=== PATIENT | female | born 1940 | race Caucasian/White ===

== ENCOUNTER 2018-06-19 07:32 | Emergency (ER) | payer MEDICARE ==
[~2018-06-19] VITALS: Ht 157.5 cm; Wt 90.7 kg
[~2018-06-19 07:32] MED LIST: ALPR0.254 PO; AMOX500C2 PO; ASPI-84 PO; BP MED; BSP10T; CEPH-506 PO; CETI10CA PO; HCT25T PO; LABE300T PO; LEVO25TA5 PO; POTA-51 PO; POTA10CA43 PO; VLS80C PO; XANAX; flexeril PO
[2018-06-19] MEDS ORDERED: KETOROLAC 30 MG/ML VIAL IM ONE (08:00)
[2018-06-19] MEDS ORDERED: ORPHENADRINE 60 MG/2 ML (NORFLEX) AMP IM ONE (08:00)
[2018-06-19] MEDS ORDERED: HYDROcodone/APAP 5 MG/325 MG (LORTAB) TAB PO ONE (09:00)
--- NOTE | 2018-06-19 09:15 | ED Back Pain ---
General Chief Complaint: Back Problems Stated Complaint: POSSIBLE SHINGLES Nursing Triage Note: pt presents to ed with complaints of upper r upper back pain starting at 1900 yesterday. pt reports reports it is worse with movement and touch. pt reports she has been packing boxes for a move recently. Nursing Sepsis Screen: No Definite Risk Source of Information: Patient Exam Limitations: No Limitations History of Present Illness Date Seen by Provider: Jun 19, 2018 Time Seen by Provider: 07:40 Initial Comments This delightful 78-year-old woman presents to the emergency room with complaints of pain in the right upper back since yesterday. It is exacerbated with certain movements and positions. She did take some medications last night including ibuprofen. She has also tried a heating pad. Patient reports she is in the process of moving and her son's home and has been sorting through things and packing boxes. She denies any known injury. This is a new problem for her. Pain did disrupt her sleep. Allergies and Home Medications Allergies Coded Allergies: Sulfa (Sulfonamide Antibiotics) (Verified Allergy, Unknown, 09/01/06) Home Medications Alprazolam 0.25 Mg Tablet, 0.25 MG PO BID, (Reported) Buspirone Hcl 10 Mg Tablet, 2 BID, (Reported) Cephalexin 250 Mg Capsule, 250 MG PO TID, (Reported) Cetirizine HCl 10 Mg Capsule, 10 MG PO DAILY, (Reported) Cyclobenzaprine HCl 5 Mg Tablet, 5 MG PO TID PRN for SPASMS Prescribed by: FIORELLA WATTERS on 06/19/18919 Hydrochlorothiazide 25 Mg Tab, 25 MG PO BID, (Reported) Hydrocodone/Acetaminophen 1 Each Tablet, 1 EACH PO Q6H PRN for PAIN-MODERATE TO SEVERE Prescribed by: FIORELLA WATTERS on 06/19/18 09 Labetalol Hcl 300 Mg Tablet, 2 EACH PO BID, (Reported) Levothyroxine Sodium 25 Mcg Tablet, 25 MCG PO DAILY, (Reported) Potassium Chloride 10 Meq Capsule.er, 10 MEQ PO DAILY Prescribed by: KETAN PÉREZ on 10/21/15 1624 Potassium Chloride 20 Meq Tablet.er, 20 MEQ PO BID Prescribed by: KETAN PÉREZ on 02/06/16 1439 Prednisone 10 Mg Tab, 1 TAB PO DAILY Prescribed by: FIORELLA WATTERS on 06/19/18 0920 Valsartan 80 Mg Tab, 160 MG PO BID, (Reported) [flexeril] , 5 MG PO BID PRN for PAIN Prescribed by: KETAN PÉREZ on 02/06/16 1441 Patient Home Medication List Home Medication List Reviewed: Yes Constitutional: no symptoms reported EENTM: no symptoms reported Respiratory: no symptoms reported Cardiovascular: no symptoms reported Gastrointestinal: no symptoms reported Genitourinary: no symptoms reported : No Musculoskeletal: see HPI Skin: no symptoms reported Psychiatric/Neurological: No Symptoms Reported Past Avgvkow-Kcvepp-Cfmuhu Hx Past Med/Social Hx: Reviewed and Corrections made Patient Social History Alcohol Use: Denies Use Recreational Drug Use: No Smoking Status: Former Smoker Type Used: Cigarettes Former Smoker, Quit: Jun 05, 1969 Recent Foreign Travel: No Contact w/Someone Who Travel: No Recent Infectious Disease Expo: No Physical Abuse: No Sexual Abuse: No Mistreated: No Fear: No Immunizations Up To Date Date of Pneumonia Vaccine: Sep 24, 2015 Date of Influenza Vaccine: Sep 24, 2015 Past Medical History Surgeries: Yes (HERNIA REPAIR) Appendectomy, Gallbladder, Hysterectomy, Tonsillectomy Respiratory: No Cardiac: Yes Hypertension Neurological: No : No Gastrointestinal: Yes (HERNIA) Musculoskeletal: Yes Osteoporosis Endocrine: Yes Hypothyroidsim Cancer: No Psychosocial: Yes Anxiety Nursing Suicide Risk Score: 0 Physical Exam Vital Signs Vital Signs - First Documented 06/19/18 07:45 Temp 96.1 Pulse 94 Resp 18 B/P (MAP) 179/93 (121) Pulse Ox 95 Capillary Refill : Less Than 3 Seconds Height, Weight, BMI Height: 5'2.00" Weight: 200lbs. oz. [id number]; 37.78 BMI Method:Stated General Appearance: WD/WN, Mild Distress HEENT: PERRL/EOMI, Normal ENT Inspection Neck: Normal Inspection Cardiovascular: Regular Rate, Rhythm, No Edema, No Murmur Respiratory: Lungs Clear, Normal Breath Sounds, No Accessory Muscle Use, No Respiratory Distress Gastrointestinal: Non Tender, Soft Back: Normal Inspection, No Vertebral Tenderness, Other (there is tenderness to palpation over a tense muscle medial to the right scapula that seems to be the focus of her pain) Extremity: Normal Inspection Progress/Results/Core Measures Results/Orders My Orders Orders - FIORELLA GREGORY MD Ketorolac Injection (Toradol Injection) (06/19/18 08:00) Orphenadrine Injection (Norflex Injectio (06/19/18 08:00) Hydrocodone/Apap 5/325 Tablet (Lortab 5 (06/19/18 09:00) Medications Given in ED Vital Signs/I&O 06/19/18 07:45 Temp 96.1 Pulse 94 Resp 18 B/P (MAP) 179/93 (121) Pulse Ox 95 Blood Pressure Mean: 121 Progress Progress Note : Progress Note Muscle spasm in the right upper back medial to the right scapula and to be the focus of her pain. Patient was treated with Toradol and Norflex with some improvement. She was further treated with hydrocodone before dismissal. See discharge instructions. Departure Impression Primary Impression: Upper back pain Additional Impression: Back muscle spasm Disposition: 01 HOME, SELF-CARE Condition: Improved Departure-Patient Inst. Decision time for Depature: 08:45 Referrals: TAYE GARZA MD (PCP/Family) Primary Care Physician Patient Instructions: Muscle Spasms (DC), Upper Back Pain (DC) Add. Discharge Instructions: You may take ibuprofen up to 400 mg every 6 hours as needed for primary control of your pain. Add hydrocodone as prescribed for pain not controlled by ibuprofen. Gentle heat may also help with your pain and spasms. Use cyclobenzaprine for spasms. Please be aware that hydrocodone and cyclobenzaprine may cause drowsiness. Prednisone may also be used as prescribed to help calm down inflammation and spasms. Follow-up with your primary care provider early next week if not improving as expected. All discharge instructions reviewed with patient and/or family. Voiced understanding. Scripts Prednisone (Prednisone) 10 Mg Tab 1 TAB PO DAILY, #4 TAB Prov: FIORELLA GREGORY MD 06/19/18 Cyclobenzaprine HCl (Cyclobenzaprine HCl) 5 Mg Tablet 5 MG PO TID PRN for SPASMS, #10 TAB Prov: FIORELLA GREGORY MD 06/19/18 Hydrocodone/Acetaminophen (Hydrocodone-Acetamin 5-325 mg) 1 Each Tablet 1 EACH PO Q6H PRN for PAIN-MODERATE TO SEVERE, #10 TAB Prov: FIORELLA GREGORY MD 06/19/18 FIORELLA GREGORY MD Jun 19, 2018 09:15
[2018-06-19] MEDS ORDERED: HYDR-3812 PO (09:20)
[2018-06-19] MEDS ORDERED: PRD10T PO (09:20)
[2018-06-19] MEDS ORDERED: CYCL5TAB PO (09:20)
[2018-06-19 09:29] VITALS: BP 154/82
== END 2018-06-19 09:29 | disposition home or self-care (01) ==
LOC: EDUNIT# 07:32 → ER 07:34
DX: M54.6 Pain in thoracic spine (principal); M62.830 Muscle spasm of back; I10 Essential (primary) hypertension; M81.0 Age-related osteoporosis without current pathological fracture; E03.9 Hypothyroidism, unspecified; F41.9 Anxiety disorder, unspecified; Z88.2 Allergy status to sulfonamides; Z87.19 Personal history of other diseases of the digestive system; Z79.52 Long term (current) use of systemic steroids; Z87.891 Personal history of nicotine dependence; Z90.710 Acquired absence of both cervix and uterus; Z90.89 Acquired absence of other organs
CPT/HCPCS: 96372; 99281

== ENCOUNTER 2022-12-07 12:26 | Inpatient (IN) | payer MEDICARE ==
[~2022-12-07 12:26] MED LIST changes: +ACHD5005 PO; +ALPR.25T PO; -ALPR0.254 PO; +CYCL5TAB PO; -POTA10CA43 PO; +POTA10CA44 PO; +PRD10T PO
--- NOTE | 2022-12-07 12:47 | ED General ---
General Chief Complaint: Altered Mental Status Stated Complaint: CONFUSION Nursing Triage Note: PT TO ED PER EMS, EMS STATES SON CALLED DUE TO PATIENT HAVING INCREASED CONFUSION AND INCREASED FALLS RECENTLY Source of Information: Patient, EMS Exam Limitations: No Limitations History of Present Illness Date Seen by Provider: Dec 07, 2022 Time Seen by Provider: 12:35 Initial Comments 82-year-old female presents to the emergency department today via EMS for reported increased confusion and falls. She does have a history of falls however has fallen 4 times over the last week. No apparent injuries from these falls. She does live at home with her son per her report. She does remember each event and denies any injury. She denies any chest pain or shortness of breath prior to each event. No recent illnesses to include fevers chills chest pain, shortness of breath, abdominal pain or change in bowel bladder habits she states she is sometimes intermittently confused but does not feel confused currently. She does state that she has been dizzy which has been causing her falls. This seems to be a longstanding issue for her. Allergies and Home Medications Allergies Coded Allergies: Sulfa (Sulfonamide Antibiotics) (Verified Allergy, Unknown, 09/01/06) Patient Home Medication List Home Medication List Reviewed: Yes ALPRAZolam (Xanax Tablet) 0.25 Mg Tablet, 0.25 MG PO BID, (Reported) Entered as Reported by: EMMA MULLER on 10/21/151409 Buspirone Hcl (Buspar) 10 Mg Tablet, 2 BID, (Reported) Entered as Reported by: VIVIANE OCAMPO on 12/29/10 075 Cephalexin (Keflex) 250 Mg Capsule, 250 MG PO TID, (Reported) Entered as Reported by: EMMA MULLER on 10/21/15 141 Cetirizine HCl (Zyrtec) 10 Mg Capsule, 10 MG PO DAILY, (Reported) Entered as Reported by: EMMA MULLER on 10/21/15 141 Cyclobenzaprine HCl (Cyclobenzaprine HCl) 5 Mg Tablet, 5 MG PO TID PRN for SPASMS Prescribed by: FIORELLA WATTERS on 06/19/18 0920 Hydrochlorothiazide (Hctz) 25 Mg Tab, 25 MG PO BID, (Reported) Entered as Reported by: VIVIANE OCAMPO on 12/29/10 0754 Hydrocodone Bit/Acetaminophen (Lortab 5 Mg Tablet) 1 Each Tablet, 1 EACH PO Q6H PRN for PAIN-MODERATE TO SEVERE Prescribed by: FIORELLA WATTERS on 06/19/18 0920 Labetalol Hcl (Labetalol Hcl) 300 Mg Tablet, 2 EACH PO BID, (Reported) Entered as Reported by: VIVIANE OCAMPO on 12/29/10 0754 Levothyroxine Sodium (Levothyroxine Sodium) 25 Mcg Tablet, 25 MCG PO DAILY, (Reported) Entered as Reported by: EMMA MULLER on 10/21/15 1410 Potassium Chloride (Potassium Chloride) 10 Meq Capsule.er, 10 MEQ PO DAILY Prescribed by: KETAN PÉREZ on 10/21/15 1624 Potassium Chloride (Potassium Chloride) 20 Meq Tablet.er, 20 MEQ PO BID Prescribed by: KETAN PÉREZ on 02/06/16 1439 Prednisone (Prednisone) 10 Mg Tab, 1 TAB PO DAILY Prescribed by: FIORELLA WATTERS on 06/19/18 0920 Valsartan (Diovan) 80 Mg Tab, 160 MG PO BID, (Reported) Entered as Reported by: VIVIANE OCAMPO on 12/29/10 0754 [flexeril] , 5 MG PO BID PRN for PAIN Prescribed by: KETAN PÉREZ on 02/06/16 1441 Review of Systems Review of Systems Constitutional: no symptoms reported EENTM: no symptoms reported Respiratory: no symptoms reported Cardiovascular: no symptoms reported Gastrointestinal: no symptoms reported Genitourinary: no symptoms reported Musculoskeletal: no symptoms reported Skin: no symptoms reported Psychiatric/Neurological: Other (Intermittent confusion) Hematologic/Lymphatic: No Symptoms Reported Immunological/Allergic: no symptoms reported Past Npsvxlm-Ijfesw-Owiudm Hx Patient Social History Tobacco Use?: No Substance use?: No Alcohol Use?: No Past Medical History Surgeries: Yes (HERNIA REPAIR) Appendectomy, Gallbladder, Hysterectomy, Tonsillectomy Respiratory: No Cardiac: Yes Hypertension Neurological: No Gastrointestinal: Yes (HERNIA) Musculoskeletal: Yes Osteoporosis Endocrine: Yes Hypothyroidsim Cancer: No Psychosocial: Yes Anxiety Family Medical History Reviewed Nursing Family Hx No Pertinent Family Hx Physical Exam Vital Signs Vital Signs - First Documented 12/07/22 12:31 Temp 37.0 Pulse 88 Resp 16 B/P (MAP) 215/95 (135) Pulse Ox 95 O2 Delivery Room Air Capillary Refill : Less Than 3 Seconds Height, Weight, BMI Height: 5'2.00" Weight: 200lbs. oz. 90.027201ff; 37.78 BMI Method:Stated General Appearance: No Apparent Distress, WD/WN Eyes: Bilateral Eye Normal Inspection, Bilateral Eye PERRL, Bilateral Eye EOMI HEENT: TMs Normal, Normal ENT Inspection, Pharynx Normal Neck: Normal Inspection, Non Tender, Supple Respiratory: Chest Non Tender, Lungs Clear, Normal Breath Sounds, No Accessory Muscle Use, No Respiratory Distress Cardiovascular: Regular Rate, Rhythm, No Edema, No Gallop, No Murmur Gastrointestinal: Normal Bowel Sounds, No Organomegaly, No Pulsatile Mass, Non Tender, Soft Back: Normal Inspection, No CVA Tenderness, No Vertebral Tenderness Extremity: Normal Capillary Refill, Normal Inspection, Normal Range of Motion, Non Tender, No Calf Tenderness, No Pedal Edema Neurologic/Psychiatric: Alert, Oriented x3, No Motor/Sensory Deficits, Normal Mood/Affect, credit union teller II-XII Norm as Tested, Other (The patient will occasionally f orget where we are in our conversation however continues appropriately when prompted. She does seem to answer questions appropriately, is alert and oriented to person place and time.) Skin: Normal Color, Warm/Dry Lymphatic: No Adenopathy Progress/Results/Core Measures Suspected Sepsis SIRS Temperature: Pulse: 88 Respiratory Rate: 16 Laboratory Tests 12/07/22 12:35: White Blood Count 6.2 Blood Pressure 215 /95 Mean: 135 Laboratory Tests 12/07/22 12:35: Creatinine 0.84, Platelet Count 105L, Total Bilirubin 1.0 Results/Orders Lab Results Laboratory Tests Test 12/07/22 12:35 12/07/22 13:40 Range/Units White Blood Count 6.2 4.3-11.0 10^3/uL Red Blood Count 4.15 3.80-5.11 10^6/uL Hemoglobin 13.7 11.5-16.0 g/dL Hematocrit 39 35-52 % Mean Corpuscular Volume 94 80-99 fL Mean Corpuscular Hemoglobin 33 25-34 pg Mean Corpuscular Hemoglobin Concent 35 32-36 g/dL Red Cell Distribution Width 12.8 10.0-14.5 % Platelet Count 105 L 130-400 10^3/uL Mean Platelet Volume 11.6 9.0-12.2 fL Immature Granulocyte % (Auto) 0 % Neutrophils (%) (Auto) 66 42-75 % Lymphocytes (%) (Auto) 24 12-44 % Monocytes (%) (Auto) 8 0-12 % Eosinophils (%) (Auto) 2 0-10 % Basophils (%) (Auto) 0 0-10 % Neutrophils # (Auto) 4.1 1.8-7.8 10^3/uL Lymphocytes # (Auto) 1.5 1.0-4.0 10^3/uL Monocytes # (Auto) 0.5 0.0-1.0 10^3/uL Eosinophils # (Auto) 0.1 0.0-0.3 10^3/uL Basophils # (Auto) 0.0 0.0-0.1 10^3/uL Immature Granulocyte # (Auto) 0.0 0.0-0.1 10^3/uL Percent Immature Platelet Fraction 7.7 H 0.0-7.6 % Sodium Level 140 135-145 MMOL/L Potassium Level 3.1 L 3.6-5.0 MMOL/L Chloride Level 102 98-107 MMOL/L Carbon Dioxide Level 25 21-32 MMOL/L Anion Gap 13 5-14 MMOL/L Blood Urea Nitrogen 19 H 7-18 MG/DL Creatinine 0.84 0.60-1.30 MG/DL Estimat Glomerular Filtration Rate 68 BUN/Creatinine Ratio 23 Glucose Level 119 H 70-105 MG/DL Calcium Level 9.9 8.5-10.1 MG/DL Corrected Calcium 9.8 8.5-10.1 MG/DL Total Bilirubin 1.0 0.1-1.0 MG/DL Aspartate Amino Transf (AST/SGOT) 45 H 5-34 U/L Alanine Aminotransferase (ALT/SGPT) 25 0-55 U/L Alkaline Phosphatase 106 40-136 U/L Troponin I < 0.028 <0.028 NG/ML Total Protein 7.0 6.4-8.2 GM/DL Albumin 4.1 3.2-4.5 GM/DL Urine Color YELLOW Urine Clarity CLEAR Urine pH 7.5 5-9 Urine Specific [place] 1.020 1.016-1.022 Urine Protein 2+ H NEGATIVE Urine Glucose (UA) NEGATIVE NEGATIVE Urine Ketones NEGATIVE NEGATIVE Urine Nitrite POSITIVE H NEGATIVE Urine Bilirubin NEGATIVE NEGATIVE Urine Urobilinogen 0.2 < = 1.0 MG/DL Urine Leukocyte Esterase TRACE H NEGATIVE Urine RBC (Auto) TRACE-I H NEGATIVE Urine RBC RARE /HPF Urine WBC 0-2 /HPF Urine Squamous Epithelial Cells NONE /HPF Urine Crystals NONE /LPF Urine Bacteria LARGE H /HPF Urine Casts NONE /LPF Urine Mucus NEGATIVE /LPF Urine Culture Indicated YES Urine Opiates Screen POSITIVE H NEGATIVE Urine Oxycodone Screen NEGATIVE NEGATIVE Urine Methadone Screen NEGATIVE NEGATIVE Urine Propoxyphene Screen NEGATIVE NEGATIVE Urine Barbiturates Screen NEGATIVE NEGATIVE Ur Tricyclic Antidepressants Screen NEGATIVE NEGATIVE Urine Phencyclidine Screen NEGATIVE NEGATIVE Urine Amphetamines Screen NEGATIVE NEGATIVE Urine Methamphetamines Screen NEGATIVE NEGATIVE Urine Benzodiazepines Screen NEGATIVE NEGATIVE Urine Cocaine Screen NEGATIVE NEGATIVE Urine Cannabinoids Screen NEGATIVE NEGATIVE My Orders Orders - VICTORINO GOODWIN DO Cbc With Automated Diff (12/07/22 12:42) Comprehensive Metabolic Panel (12/07/22 12:42) Ua Culture If Indicated (12/07/22 12:42) Drug Screen Stat (Urine) (12/07/22 12:42) Chest 1 View, Ap/Pa Only (12/07/22 12:42) Ct Head Wo (12/07/22 12:42) Troponin I Joshua (12/07/22 12:47) Ekg Tracing (12/07/22 12:47) Urine Culture (12/07/22 13:40) Ceftriaxone 1 Gm Pre-Mix (Rocephin 1 Gm (12/07/22 14:15) Ed Admission (Communication) (12/07/22 14:41) Code/Resuscitation (12/07/22 14:48) Vital Signs/I&O 12/07/22 12:31 Temp 37.0 Pulse 88 Resp 16 B/P (MAP) 215/95 (135) Pulse Ox 95 O2 Delivery Room Air Capillary Refill : Less Than 3 Seconds Blood Pressure Mean: 135 ECG Comment Sinus rhythm with a rate of 82 bpm. Normal intervals. Left axis deviation. No ST or T wave abnormalities. No ectopy. Departure Communication (Admissions) Patient is intermittently pleasantly confused. She does have a significant urinary tract infection and some lung infiltrates, infectious versus atelectasis. Significant leukocytosis. She is afebrile and nontoxic with normal vital signs otherwise. I think her confusion is likely a manifestation of her urinary tract infection and possible lung infections however she does not have a lot of symptoms of lung infection. With that I gave her some Rocephin. He seems to cover the urinary tract infection but should cover any lung infections as well and is this would be considered a community-acquired type infection. Electrolytes are unremarkable, renal function is normal. She is not dehydrated on exam making urine well. I spoke with her son at length. He has been talking about putting her in a nursing facility at home as he feels that she is unsafe at home, getting out of bed frequently without asking for assistance and falling down with increased frequency. He is concerned that she will hold her self only 1 of these times. Given her current confusion and incre asing falls we will go ahead and admit her to the hospital for IV antibiotics. I spoke with Dr. De Souza who accepts the patient in admission. Impression Primary Impression: Confusion Additional Impressions: Lung infiltrate UTI (urinary tract infection) Qualified Codes: N30.01 - Acute cystitis with hematuria Disposition: HOME, SELF-CARE Condition: Stable Departure-Patient Inst. Referrals: TAYE GARZA MD (PCP/Family) Primary Care Physician VICTORINO GOODWIN DO Dec 07, 2022 12:47
[2022-12-07 13:01] LABS: HEMATOCRIT 39 % (35-52); NEUTROPHILS # (AUTO) 4.1 10^3/uL (1.8-7.8)
[2022-12-07 13:03] LABS: BASOPHILS % (AUTO) 0 % (0-10); EOSINOPHILS # (AUTO) 0.1 10^3/uL (0.0-0.3); EOSINOPHILS % (AUTO) 2 % (0-10); HEMOGLOBIN 13.7 g/dL (11.5-16.0); LYMPHOCYTES # (AUTO) 1.5 10^3/uL (1.0-4.0); LYMPHOCYTES % (AUTO) 24 % (12-44); MEAN CORPUSCULAR HEMOGLOBIN 33 pg (25-34); MEAN CORPUSCULAR HGB CONC 35 g/dL (32-36); MEAN CORPUSCULAR VOLUME 94 fL (80-99); MEAN PLATELET VOLUME 11.6 fL (9.0-12.2); MONOCYTES # (AUTO) 0.5 10^3/uL (0.0-1.0); MONOCYTES % (AUTO) 8 % (0-12); NEUTROPHILS % (AUTO) 66 % (42-75); WHITE BLOOD COUNT 6.2 10^3/uL (4.3-11.0)
[2022-12-07 13:05] LABS: PLATELET COUNT 105 10^3/uL (130-400)
[2022-12-07 13:13] LABS: ALBUMIN 4.1 GM/DL (3.2-4.5); POTASSIUM 3.1 MMOL/L (3.6-5.0)
[2022-12-07 13:14] LABS: CALCIUM 9.9 MG/DL (8.5-10.1)
--- NOTE | 2022-12-07 13:16 | Diagnostic Imaging Report ---
EXAMINATION: CT head without contrast. TECHNIQUE: Multiple contiguous axial images were obtained through the brain without the use of intravenous contrast. All CT scans use one or more of the following dose optimizing techniques: automated exposure control, MA and/or KvP adjustment based on patient size and exam type or iterative reconstruction. HISTORY: Altered mental status. Confusion. Falls. COMPARISON: None available. FINDINGS: No large acute territorial ischemia, mass, or hemorrhage. No midline shift or mass effect. Decreased attenuation is seen in the periventricular and subcortical white matter. The ventricles and cortical sulci are prominent. The basilar cisterns are patent and unremarkable. The orbits are normal. Paranasal sinuses are normal. Mastoid air cells are clear. No soft tissue abnormality is seen. No osseus lesions or fractures are seen. IMPRESSION: 1. No large acute territorial ischemia, mass, or hemorrhage. 2. Chronic microvascular disease. 3. Generalized parenchymal volume loss. Dictated by: Dictated on workstation # [id number]
[2022-12-07 13:19] LABS: CREATININE SERUM 0.84 MG/DL (0.60-1.30)
--- NOTE | 2022-12-07 13:38 | Diagnostic Imaging Report ---
EXAMINATION: Chest 1 view HISTORY: Altered mental status. Confusion. COMPARISON: 02/06/2016. FINDINGS: There is stable volume loss in the left hemithorax. Small amount of left basilar opacities are seen. No large pleural effusion or pneumothorax is seen. The cardiomediastinal silhouette is normal in size and contour. There is calcified aortic atherosclerotic plaque. No acute osseous abnormality is seen. IMPRESSION: 1. Left basilar opacities, which may represent atelectasis or infection. Dictated by: Dictated on workstation # [id number]
[2022-12-07 13:46] LABS: BILIRUBIN,URINE NEGATIVE (NEGATIVE); CLARITY,URINE CLEAR; COLOR,URINE YELLOW; GLUCOSE, URINE (UA) NEGATIVE (NEGATIVE); KETONES,URINE NEGATIVE (NEGATIVE); LEUKOCYTE ESTERASE ,URINE TRACE (NEGATIVE); NITRITE,URINE POSITIVE (NEGATIVE); PH,URINE 7.5 (5-9); PROTEIN,URINE 2+ (NEGATIVE)
[2022-12-07 13:56] LABS: BACTERIA,URINE LARGE /HPF; RBC,URINE RARE /HPF; WBC,URINE 0-2 /HPF
[2022-12-07 14:05] LABS: AMPHETAMINE SCREEN, URINE NEGATIVE (NEGATIVE); BARBITURATE SCREEN URINE NEGATIVE (NEGATIVE); BENZODIAZEPINES SCREEN URINE NEGATIVE (NEGATIVE); CANNABINOID SCREEN, URINE NEGATIVE (NEGATIVE); COCAINE SCREEN URINE NEGATIVE (NEGATIVE); METHADONE STAT NEGATIVE (NEGATIVE); OPIATE SCREEN URINE POSITIVE (NEGATIVE); OXYCODONE STAT NEGATIVE (NEGATIVE); PROPOXYPHENE STAT NEGATIVE (NEGATIVE); TRICYCLIC ANTIDEPRESSANTS SCRE NEGATIVE (NEGATIVE)
[2022-12-07] MEDS ORDERED: cefTRIAXone 1 GM PRE-MIX 50 ML IV ONE (14:15)
[2022-12-07] MEDS ORDERED: ANTACID SUSP 30 ML UDC (MYLANTA) PO PRN (16:00)
[2022-12-07] MEDS ORDERED: polyethylene glycoL POWDER 17 GM (MIRALAX) PACK PO PRN (16:00)
[2022-12-07] MEDS ORDERED: CALCIUM CARBONATE 500 MG (TUMS) TAB.CHEW PO PRN (16:00)
[2022-12-07] MEDS ORDERED: AZITHROMYCIN 250 MG TAB (ZITHROMAX) PO NR (16:00)
[2022-12-07] MEDS ORDERED: MELATONIN 3 MG TABLET PO PRN (16:00)
[2022-12-07] MEDS ORDERED: ONDANSETRON 4 MG/2 ML (SDV) Z0FRAN IV PRN (16:00)
[2022-12-07 16:14] VITALS: BP 215/95
[2022-12-07] MEDS ORDERED: RT-ALBUTEROL SULF 2.5 MG/3 ML PRE-MIX VIAL INH PRN (16:30)
[2022-12-07 16:49] VITALS: BP 190/90
[2022-12-07] MEDS ORDERED: MELO7.5T46 PO (17:31)
[2022-12-07] MEDS ORDERED: LABE300T4 PO (17:32)
[2022-12-07] MEDS ORDERED: FOLI-88 PO (17:33)
[2022-12-07 19:03] VITALS: BP 186/90
[2022-12-07] MEDS ORDERED: KCL 20 MEQ TAB (K-DUR) PO ONE (20:00)
[2022-12-07] MEDS: busPIRone 10 MG (BUSPAR) TAB PO SCH (21:29)
[2022-12-07] MEDS: LABETALOL 200 MG (NORMODYNE) TAB PO SCH (21:29)
[2022-12-07 23:22] VITALS: BP 142/65
[2022-12-08 03:48] VITALS: BP 142/66
[2022-12-08 06:05] LABS: HEMOGLOBIN 12.4 g/dL (11.5-16.0); MEAN PLATELET VOLUME 12.2 fL (9.0-12.2); WHITE BLOOD COUNT 6.6 10^3/uL (4.3-11.0)
[2022-12-08 06:17] LABS: POTASSIUM 3.4 MMOL/L (3.6-5.0)
[2022-12-08 06:18] LABS: CALCIUM 9.6 MG/DL (8.5-10.1)
[2022-12-08 06:22] LABS: CREATININE SERUM 0.8 MG/DL (0.60-1.30)
[2022-12-08 07:24] VITALS: BP 142/64
[2022-12-08] MEDS: busPIRone 10 MG (BUSPAR) TAB PO SCH ×2 (08:36→19:24)
[2022-12-08] MEDS: AZITHROMYCIN 250 MG TAB (ZITHROMAX) PO SCH (08:36)
[2022-12-08] MEDS: MELOXICAM 7.5 MG (MOBIC) TABLET PO SCH (08:37)
--- NOTE | 2022-12-08 10:46 | History & Physical-Hospitalist ---
DAVID MEZA 12/08/22 1046: History of Present Illness HPI/Chief Complaint 82 year old female with history of hypertension, hypothyroidism, anxiety, and osteoporosis who has been having confusion and falls at home for the past week. She reports at least 6 falls at home in the past week due to dizziness. She denies any injuries or LOC from the fall. She reports having chronic intermittent dizziness at home that she reports feels as though the ground is unsteady. While in the ED yesterday her initial BP was 215/96 mmHg, she was found to have an UTI based on urinalysis results, and a chest x ray revealed left basilar opacitied suggestive of atelectasis vs. infection. Head CT ruled out acute ischemia, hemorrhage, or mass and revealed chronic microvascular disease. When seen today patient appeared alert and oriented initially but upon further questioning was alert to self only. She denies headache, dizziness, chest pain, palpitations, SOB, cough, abd pain, N/V/D, or dysuria at this time. She does report chronic urinary incontinence. Patient reports living at home with her sone who was seen later in the morning. He reports confusion and falls is an ongoing concern. He also reports she has had poor appetite and has been drinking ensures to try to compensate. Recently she has been having a more dificult time swallowing pills at home. Source: patient Date Seen 12/08/22 Time Seen by a Provider: 10:30 Attending Physician Johnny Garcia MD PCP Admitting Physician: Korey Barrett MD Attending Physician: Korey Barrett MD Referring Physician Date of Admission Dec 07, 2022 at 14:42 Home Medications & Allergies Home Medications Reviewed patient Home Medication Reconciliation performed by pharmacy medication reconciliations player piano technician and/or nursing. Patients Allergies have been reviewed. Allergies Allergies Coded Allergies Sulfa (Sulfonamide Antibiotics) (Verified Allergy, Unknown, 09/01/06) Past Xqrxgfe-Eusbru-Mdtzfb Hx Patient Social History Tobacco Use?: No Smoking Status: Never a Smoker Use of E-Cig and/or Vaping dev: No Substance use?: No Alcohol Use?: No Pt feels they are or have been: No Immunizations Up To Date Date of Influenza Vaccine: Sep 24, 2015 Tetanus Booster (TDap): Less Than 5 Years Hepatitis A: Yes Hepatitis B: Yes Date of Pneumonia Vaccine: Sep 24, 2015 Current Status status: No status: No Advance Directives: No Primary Language: Belarusian Preferred Spoken Language: Belarusian Past Medical History Surgeries: Appendectomy, Gallbladder, Hysterectomy, Tonsillectomy Hypertension Osteoporosis Hypothyroidsim Anxiety Family Medical History Reviewed Nursing Family Hx No Pertinent Family Hx Review of Systems Constitutional: No chills, No dizziness (denies at this time), No malaise, No weakness EENTM: No hearing loss, No vision loss Respiratory: No cough, No short of breath Cardiovascular: No chest pain, No palpitations Gastrointestinal: No abdominal pain, No diarrhea, No nausea, No vomiting Genitourinary: No dysuria, No hematuria; incontinence Musculoskeletal: no symptoms reported Skin: no symptoms reported Psychiatric/Neurological: Denies Headache; Other (confusion) Physical Exam Physical Exam Vital Signs Vital Signs - First Documented 12/07/22 12/07/22 12:31 16:14 Temp 37.0 Pulse 88 Resp 16 B/P (MAP) 215/95 (135) Pulse Ox 95 O2 Delivery Room Air FiO2 21 Capillary Refill : Less Than 3 Seconds Height, Weight, BMI Height: 5'2.00" Weight: 200lbs. oz. 90.567670wl; 37.78 BMI Method:Stated General Appearance: No Apparent Distress, WD/WN Eyes: Bilateral Eye PERRL, Bilateral Eye EOMI HEENT: PERRL/EOMI, Pharynx Normal, Moist Mucous Membranes Neck: Non Tender, Supple Respiratory: Chest Non Tender, Lungs Clear, Normal Breath Sounds, No Accessory Muscle Use, No Respiratory Distress Cardiovascular: Regular Rate, Rhythm, Normal Peripheral Pulses, Other (Mild systolic ejection murmur at midclavicular 5th intercostal space) Gastrointestinal: Normal Bowel Sounds, Non Tender, Soft Extremity: Normal Capillary Refill, Normal Range of Motion, Non Tender, No Calf Tenderness Neurologic/Psychiatric: Alert, No Motor/Sensory Deficits, Normal Mood/Affect, director of cardiology II-XII Norm as Tested, Disoriented (oriented to self only) Skin: Normal Color, Warm/Dry Lymphatic: No Adenopathy Results Results/Procedures Labs Laboratory Tests 12/07/22 12:35 12/08/22 05:32 Patient resulted labs reviewed. Assessment/Plan Admission Diagnosis encephalopathy, UTI Assessment and Plan Encephalopathy secondary to Pneumonia vs UTI vs HTN 12/06/22:patient presented with BP of 215/95 mmHg. Urinalysis revealed Nitrite (+), trace leukocytes & RBCs, and large bacteria present. 12/06/22: Chest x ray revealed left basilar opacities with impression suggesting atelectasis vs. infection Patient started on rocephin 1g Q24 IV and given loading dose of axithromycin 500mg PO one time dose yesterday with 250mg oral PO QD for next 4 days Abx should cover both UTI & pneumonia Will continue Labetalol 200mg PO QD and use hydralazine 5mg Q4hr PRN IV for systolic > 180. PT/OT tomorrow and ST as well given son's concern about dysphagia Urinary Tract Infection rocephin 1g Q24 IV Community acquired Pneumonia Rocephin & Vancomycin as above Hypertension labetalol & Hydralazine as above Anxiety buspirone 10mg PO BID DVT Prophylaxis KOREY Lopez MD 12/08/22 1542: Assessment/Plan Admission Diagnosis Admission Status: Inpatient Order (span 2 midnights) Reason for Inpatient Admission: see below Assessment and Plan Patient presented to the ER due to frequent falls and altered mental status. Her son is at bedside and provides most of the history. He states she lives with him and for the past month of so she has been declining She has struggled with UTIs for years and had a UA done in [facility] but it was negative. She was getting confused and calling her other children repearng things or not knowing that he son went to the grocery store after he told her. She has had at least 4-6 falls the past week or so and saw Dr Garcia on 11/21. He decided to bring her in to the ER where she was found to have a UTI and bilateral pneumonia. She is being treated with IV abx and will see PT/OT tomorrow. CURB 65 score is 3 indicated moderate risk of progression. Await cultures. She alan shave thrombocytopenia which is new, will trend this. Son is open to placement if needed for her safety but patient is hesitant. Supervisory-Addendum Brief Verification & Attestation Participated in pt care: history, MDM, physical Personally performed: exam, history, MDM, supervision of care Care discussed with: Medical Student Procedures: n/a Results interpretation: Verified all documentation Verification and Attestation of Medical Student E/M Service A medical student performed and documented this service in my presence. I reviewed and verified all information documented by the medical student and made modifications to such information, when appropriate. I personally performed the physical exam and medical decision making. Korey Barrett, Dec 08, 2022,15:38 DAVID MEZA Dec 08, 2022 10:46 KOREY BARRETT MD Dec 08, 2022 15:42
[2022-12-08 11:30] VITALS: BP 156/69
[2022-12-08 16:00] VITALS: BP 183/73
[2022-12-08] MEDS: cefTRIAXone 1 GM PRE-MIX 50 ML IV SCH (16:34)
[2022-12-08] MEDS: LABETALOL 200 MG (NORMODYNE) TAB PO SCH (19:24)
[2022-12-08 19:40] VITALS: BP 226/98
[2022-12-08] MEDS: hydrALAZINE (APESOLINE) 20 MG/ML VIAL IV PRN (23:28)
[2022-12-08 23:33] VITALS: BP 197/80
[2022-12-09] VITALS (8 sets, daily range): BP systolic 144–208; BP diastolic 65–103
[2022-12-09] MEDS: hydrALAZINE (APESOLINE) 20 MG/ML VIAL IV PRN (04:10)
[2022-12-09 06:34] LABS: HEMATOCRIT 37 % (35-52); HEMOGLOBIN 13.3 g/dL (11.5-16.0); MEAN CORPUSCULAR HEMOGLOBIN 33 pg (25-34); MEAN CORPUSCULAR HGB CONC 36 g/dL (32-36); MEAN CORPUSCULAR VOLUME 94 fL (80-99); MEAN PLATELET VOLUME 12.4 fL (9.0-12.2); PLATELET COUNT 88 10^3/uL (130-400); WHITE BLOOD COUNT 7.2 10^3/uL (4.3-11.0)
[2022-12-09 06:35] LABS: CALCIUM 9.6 MG/DL (8.5-10.1); CREATININE SERUM 0.79 MG/DL (0.60-1.30); POTASSIUM 3.5 MMOL/L (3.6-5.0)
[2022-12-09] MEDS: MELOXICAM 7.5 MG (MOBIC) TABLET PO SCH (08:43)
[2022-12-09] MEDS: AZITHROMYCIN 250 MG TAB (ZITHROMAX) PO SCH (08:43)
[2022-12-09] MEDS: busPIRone 10 MG (BUSPAR) TAB PO SCH ×2 (08:43→19:58)
[2022-12-09] MEDS ORDERED: lisINopril 20 MG (PRINIVIL) TABLET PO SCH (09:00)
--- NOTE | 2022-12-09 09:39 | ST Dysphagia Evaluation ---
Speech Evaluation-General Medical Diagnosis Debility Onset Date: Dec 09, 2022 Therapy Diagnosis Therapy Diagnosis: Intact Oropharyngeal Swallow Function Precautions Precautions: Fall, Pressure Ulcer, Aspiration Precautions/Isolations: Aspiration, Fall Prevention, Standard Precautions, Pressure Ulcer Referral Referring Physician: Dr. Barrett Reason for Referral: Evaluation/Treatment Medical History Reviewed History: Yes Speech PLF/Current-Dysphagia Prior Level of Function The clinician does not have information regarding the patient's prior cognitive or oropharyngeal swallowing level of function. The patient stated her son completes a large amount of the housework, "De does a lot for me. Laundry and meals." The patient stated she completes her own medication management and financial organization (bills, etc.). The patient reports she consumes a regular consistency diet with thin liquids at home. Subjective The patient was seated upright in her bed, awake and alert, upon entrance to her room by the clinician. The patient greeted the clinician appropriately and was agreeable to participation in the dysphagia treatment session. Per RN, the patient has consumed her pills well with water. The RN is halving larger pills for the patient's ease, as well. Cognitive Status Patient Orientation: Person, Confused, Place (Hospital.) Oral Motor Skills Dentition: Natural Denture Type: Full- Upper & Lower Current Food Consistancy: Regular, Thin Liquids Ability to Follow Directions: Good Oral Expression Ability: Mild Impairment Voice Voice Phonatory-Based Quality: Weak Voice Pitch: Normal Voice Loudness: Moderately Soft/Quiet Face Facial Symmetry: Symmetrical Oral-Facial Assessment Oral-Facial Dentition: Normal Labial Seal Description: Normal Smile: Normal Lingual Protrusion: Normal Lingual ROM: Normal Lingual Strength: Normal Volitional Dry Swallow: Yes Dysphagia Evaluation Consistencies Presented: Regular, Thin Liquid The patient did not display oral impairments with the swallowing function at this time. The patient does not display pharyngeal impairments to the swallowing function at this time. Laryngeal elevation was present to palpation. Overt s/s of suspected aspiration were not demonstrated with multiple straw drinks of thin liquid, multiple drinks of Ensure, and three bites of fresh f ruit. The patient politely deferred additional P.O. intake. Recommendations: - Regular consistency diet with thin liquids, as tolerated. - Fully upright and alert for P.O. intake. - Small, single bites and sips, only. - Monitor for s/s of suspected aspiration with P.O. intake. If demonstrated, contact speech pathology. The results and recommendations were discussed with the patient and provided to the patient's RN. Unfortunately, regardless of meal set up by the clinician, the patient consumed limited quantities (three bites of fruit, half of an Ensure, straw drinks of water). Verbal encouragement was provided for improved P.O. in take, however, the patient politely deferred (offering her own food to the clinician). Due to the limited evaluation, the clinician is unable to provide recommendations for modifications, however, the patient does appear safe for the consistencies directly supervised by the clinician. Dysphagia Evaluation Summary At this time, the patient displays an intact oropharyngeal swallow function. Speech Short Term Goals Short Term Goals Short Term Goals 1. The patient will demonstrate safe swallowing precautions with 80% accuracy and mild clinician verbal cueing. Time Frame-STG: Three Days. Speech Mcfp Goals Mcfp Goals 1. The patient will tolerate the least restrictive diet consistency without s/s of suspected aspiration. Time Frame: One Week. Speech-Plan Treatment Plan Speech Therapy Treatment Plan: Continue Plan of Care Treatment Duration: Dec 13, 2022 Frequency: 4 times per week Estimated Hrs Per Day: .25 hour per day Rehab Potential: Fair Safety Risks/Education Teaching Recipient: Patient Teaching Methods: Discussion Response to Teaching: Reinforcement Needed Education Topics Provided: Safe Swallowing Precautions Time Speech Therapy Time In: 09:00 Speech Therapy Time Out: 09:16 DATE: Dec 09, 2022 Total Billed Time: 16 Billed Treatment Time 1, ANUP AGUIAR [facility] Dec 09, 2022 09:39
--- NOTE | 2022-12-09 09:39 | ST Cognitive Linguistic Eval ---
Speech Evaluation-General Medical Diagnosis Debillity Onset Date: Dec 09, 2022 Therapy Diagnosis Therapy Diagnosis: Mild Cognitive Impairment (Confusion) Precautions Precautions: Fall, Pressure Ulcer, Aspiration Precautions/Isolations: Aspiration, Fall Prevention, Standard Precautions, Pressure Ulcer Referral Referring Physician: Dr. Barrett Reason for Referral: Evaluation/Treatment Medical History Reviewed History: Yes Speech PLF-Current Status Prior Level of Function The clinician does not have information regarding the patient's prior cognitive or oropharyngeal swallowing level of function. The patient stated her son completes a large amount of the housework, "De does a lot for me. Laundry and meals." The patient stated she completes her own medication management and financial organization (bills, etc.). Subjective The patient was seated upright in her bed, awake and alert, upon entrance to her room by the clinician. The patient greeted the clinician appropriately and was agreeable to participation in the cognitive linguistic treatment session. Language Eval: Auditory Comprehends Simple Yes/No Ques: Functional Indent/Objects Multiple Pablo: Functional Follows 1-Step Commands: Functional Follows General Conversations: Mild (Additional response time provided.) Language Eval: Verbal Language Completes Spontaneous Greeting: Functional Produces Auto, Serial Info: Functional Imitates Simple Words/Phrases: Functional Word Finding: Moderate Requests Basic Needs: Functional States Basic Personal Info: Functional Cognitive Patient Orientation The patient was oriented to self. The patient was not oriented to month, day of the week, or year. The patient did know she was at a hospital, however, was not sure which one at this time. Objective Cognitive Domain Attention: Mild Memory: Moderate Objective Oral Motor/Speech Production The patient does not display dysarthria or apraxia of speech at this time. The patient is 100% intelligible in known and unknown contexts. Impression The patient displays deficits with cognitive skills, most notably memory. The patient demonstrated reduced processing time during responses, however, did not display an overt expressive or receptive language disorder. Overall, the patient appears confused at this time. The clinician will continue to monitor the patient's cognitive ability for safe discharge to the least restrictive, yet apryl ropriate, environment. Speech Short Term Goals Short Term Goals Short Term Goals 1. The patient will demonstrate 80% accuracy with orientation information with mild visual cues. Time Frame-STG: Four Days. Speech Geophysical Laboratory Supervisor Goals Geophysical Laboratory Supervisor Goals 1. The patient will demonstrate improved cognitive linguistic skills for safe discharge to the least restrictive environment. Time Frame: One Week. Speech-Plan Treatment Plan Speech Therapy Treatment Plan: Continue Plan of Care Treatment Duration: Dec 09, 2022 Frequency: 4 times per week Estimated Hrs Per Day: .25 hour per day Rehab Potential: Fair Safety Risks/Education Teaching Recipient: Patient Teaching Methods: Discussion Response to Teaching: Reinforcement Needed Education Topics Provided: Results, Recommendations, Plan of Care Time Speech Therapy Time In: 09:16 Speech Therapy Time Out: 09:32 DATE: Dec 09, 2022 Total Billed Time: 16 Billed Treatment Time 1, INDIGO PINTO [facility] Dec 09, 2022 09:39
--- NOTE | 2022-12-09 10:19 | Physical Therapy Evaluation ---
PT Evaluation-General Medical Diagnosis Admission Date Dec 07, 2022 at 14:42 Medical Diagnosis: Confusion, falls Onset Date: Dec 08, 2022 Therapy Diagnosis Therapy Diagnosis: Gait deficit, strength deficit Height/Weight Height (Feet): 5 Height (Inches): 2.00 Weight (Pounds): 200 Precautions Precautions/Isolations: Fall Prevention, Standard Precautions Weight Bear Status Right Lower Extremity: Right Full Weight Bearing Left Lower Extremity: Left Full Weight Bearing Referral Physician: Dr. Barrett Reason for Referral: Evaluation/Treatment Medical History Reviewed History: Yes Social History Home: Single Level Current Living Status: Children Entry Into Home: Level Entry PT Steps Into Home: 0 Prior Prior Level of Function SCALE: Activities may be completed with or without assistive devices. 2-Fyrwqyktes-hsfuwnk completes the activity by him/herself with no assistance from a helper. 5-Set-up or Clean-up Assistance-helper sets up or cleans up; patient completes activity. Rowena assists only prior to or following the activity. 4-Supervision or Touching Assistance-helper provides verbal cues and/or touching/steadying and/or contact guard assistance as patient completes activity. Assistance may be provided throughout the activity or intermittently. 3-Partial/Moderate Assistance-helper does LESS THAN HALF the effort. Rowena lifts, holds or supports trunk or limbs, but provides less than half the effort. 2-Substantial/Maximal Assistance-helper does MORE THAN HALF the effort. Rowena lifts or holds trunk or limbs and provides more than half the effort. 6-Ftkhonevh-lxkgrv does ALL the effort. Patient does none of the effort to complete the activity. Or, the assistance of 2 or more helpers is required for the patient to complete the activity. If activity was not attempted, code reason: 7-Patient Refused. 9-Not Applicable-not attempted and the patient did not perform the activity before the current illness, exacerbation or injury. 10-Not Attempted due to Environmental Limitations-(lack of equipment, weather restraints, etc.). 88-Not Attempted due to Medical Conditions or Safety Concerns. Bed Mobility: 3 Transfers (B,C,W/C): 3 Gait: 3 Indoor Mobility (Ambulation): Needed Some Help Prior Devices Use: Walker Patient confused at this time, but indicates she needed assistance with most, if not all ADLs. Reports she has a friend that assists her with bathing. PT Evaluation-Current Subjective Patient sitting up in bed upon PT arrival, agreeable to treatment, however hesitant to get out of bed. Patient reports LBP at this time, however unable to rate. Objective Patient Orientation: Person ROM/Strength ROM Lower Extremities WFLs bilaterally all observable planes Strength Lower Extremities 3/5 bilaterally all plane via observation. Integumentary/Posture Bladder Incontinence: Yes Sensory Vision: Functional Hearing: Functional Sensation Right Lower Extremit: Intact Sensation Left Lower Extremity: Intact Transfers Roll Left to Right (QC): 2 Sit to Lying (QC): 2 Lying to Sitting/Side of Bed(Q: 2 Sit to Stand (QC): 2 Chair/Ibg-uw-Evove Xfer(QC): 2 Gait Does the Patient Walk?: Yes Mode of Locomotion: Both Anticipated Mode of Locomotion: Both Distance: 3 feet Gait Assistive Device: FWW Balance Sitting Static: Fair Sitting Dynamic: Poor Standing Static: Poor Standing Dynamic: Poor Assessment/Needs Patient tolerated treatment poorly due to dizziness, fear of falling and difficulty following commands. Patient requires mod to max A of 2 for all bed mobility and transfers. Patient incontinent upon sitting at edge of bed and requires mod A to maintain standing, with total A for changing briefs. Patient attempts walking to chair and requires max A x 2, with FWW, with frequent verbal cues and tactile cues for proper performance. Patient demonstrates lack of safety awareness and poor decision making abilities. Patient in chair post treatment with all needs met, nurse notified, call light in reach. Patients son arrives while this PT is documenting and reports that he wants his mother to go to [facility]. He reports he is currently unable to take care of her and it is affecting his health as well. Rehab Potential: Fair PT Short Term Goals Short Term Goals Time Frame: Dec 16, 2022 Roll Left & Right: 3 Sit to lyin Lying to sitting on side of be: 3 Sit to stand: 3 Chair/feu-tq-vjxhu transfer: 3 Toilet transfer: 3 Walk 10 feet: 3 Walk 50 feet with two turns: 2 PT Outsoles Channel Opener Goals Outsoles Channel Opener Goals PT Mcc Goals Time Frame: Dec 24, 2022 Roll Left & Right (QC): 4 Sit to Lying (QC): 4 Lying-Sitting on Side/Bed(QC): 4 Sit to Stand (QC): 4 Chair/Lui-mj-Cihyz Xfer(QC): 4 Toilet Transfer (QC): 4 Does the Patient Walk: Yes Walk 10 feet (QC): 4 Walk 50ft with 2 Turns (QC): 4 Walk 150 ft (QC): 3 PT Plan Problem List Problem List: Activity Tolerance, Functional Strength, Safety, Balance, Gait, Transfer, Bed Mobility, ROM Treatment/Plan Treatment Plan: Continue Plan of Care Treatment Plan: Bed Mobility, Education, Functional Activity Vanessa, Functional Strength, Group Therapy, Gait, Safety, Therapeutic Exercise, Transfers Treatment Duration: Dec 24, 2022 Frequency: 6 times per week Estimated Hrs Per Day: .25 hour per day Patient and/or Family Agrees t: Yes Patients son wants his mother to go to [facility] as he is currently unable to take care of her. Safety Risks/Education Patient Education: Gait Training, Transfer Techniques Teaching Recipient: Patient Teaching Methods: Demonstration, Discussion Response to Teaching: Reinforcement Needed Time Time In: 930 Time Out: 950 DATE: Dec 09, 2022 Total Billed Treatment Time: 20 Total Billed Treatment Visit, YESICA Calvin PT Dec 09, 2022 10:18
--- NOTE | 2022-12-09 13:23 | Occupational Therapy Eval ---
OT Evaluation-General/PLF Medical Diagnosis Admission Date Dec 07, 2022 at 14:42 Medical Diagnosis: Debility Onset Date: Dec 07, 2022 Therapy Diagnosis Therapy Diagnosis: Weakness/decreased ADL skills Height/Weight Height (Feet): 5 Height (Inches): 2.00 Weight (Pounds): 200 Precautions Precautions/Isolations: Aspiration, Fall Prevention, Standard Precautions, Pressure Ulcer Weight Bear Status Weight Bearing Restriction: Weight Bearing/Tolerated Referral Physician: Dr. Barrett Referral Reason: Activity Tolerance, Self Care, Evaluation/Treatment, Strengthening/ROM Medical History Additional Medical History Hernia repair, hysterectomy Current History Pt. states that she lives with her son. She is somewhat confused and poor historian. Reviewed History: Yes Social History Home: Single Level Current Living Status: Children Entry Into Home: Level Entry Steps Into Home: 0 ADL-Prior Level of Function SCALE: Activities may be completed with or without assistive devices. 3-Htrvbslryb-uqyyznt completes the activity by him/herself with no assistance from a helper. 5-Set-up or Clean-up Assistance-helper sets up or cleans up; patient completes activity. [place] assists only prior to or following the activity. 4-Supervision or Touching Assistance-helper provides verbal cues and/or touching/steadying and/or contact guard assistance as patient completes activity. Assistance may be provided throughout the activity or intermittently. 3-Partial/Moderate Assistance-helper does LESS THAN HALF the effort. [place] lifts, holds or supports trunk or limbs, but provides less than half the effort. 2-Substantial/Maximal Assistance-helper does MORE THAN HALF the effort. [place] lifts or holds trunk or limbs and provides more than half the effort. 3-Slegaifzo-ataqcw does ALL the effort. Patient does none of the effort to complete the activity. Or, the assistance of 2 or more helpers is required for the patient to complete the activity. If activity was not attempted, code reason: 7-Patient Refused. 9-Not Applicable-not attempted and the patient did not perform the activity before the current illness, exacerbation or injury. 10-Not Attempted due to Environmental Limitations-(lack of equipment, weather restraints, etc.). 88-Not Attempted due to Medical Conditions or Safety Concerns. ADL PLOF Comments It is not fully known what pt's prior level was. When asked if she used a walker she states, "sometimes." She looks at therapist and smiles when asked if she bathes and dresses herself. After several prompts, she states, "my son helps me." Self Care: Unknown Functional Cognition: Unknown OT Current Status Subjective Pt. states "okay" when OT asks if she is willing to get up. Mental Status/Objective Patient Orientation: Confused, Unable to Assess ADL-Treatment On/Off Footwear (QC): 1 Toileting Hygiene (QC): 1 Other Treatments Pt. seen for co-treatment with PT due to level of skilled assistance needed and fatigue level. Pt. requires multiple prompts to initiate the activity of moving her legs to the side of the bed. She is able to pick them up and walk them sl owly, but only one at a time and then with max cues. OT assists pt. with max assist to bring legs fully to side while PT assists pt. from behind with sitting balance on EOB. Once pt. is scooted to EOB with max assist, she is able to somewhat hold herself. up. It is noted that pt. has been fully incontinent of urine in the bed. Pt. stands with mod/max assist and requires dependent assist of another person to remove brief, cleanse doreen area, and apply new brief. Max cues given and min/mod x 2 for pt. to take steps and transfer to chair. She has difficulty initiating task and requires increased time and cues. Eventually therapy brings chair to her and pt. is sat down. All needs are met up in chair and pt. has call light and tray in front. Nursing notified ot pt's ability. Education OT Patient Education: Correct positioning, Modified ADL techniques, Progress toward Goal/Update tx plan, Purpose of tx/functional activities, Reviewed precautions, Rehab process, Transfer techniques Teaching Recipient: Patient Teaching Methods: Demonstration, Discussion Response to Teaching: Unable to Comprehend, Reinforcement Needed OT Short Term Goals Short Term Goals Time Frame: Dec 23, 2022 Eatin Oral hygiene: 4 Toileting hygiene: 3 Shower/bathe self: 3 Upper body dressin Lower body dressin Putting on/taking off footwear: 3 OT Track Superintendent Goals Halfway Goals Time Frame: Dec 30, 2022 Eating (QC): 6 Oral Hygiene (QC): 5 Toileting Hygiene (QC): 4 Shower/Bathe Self (QC): 4 Upper Body Dressing (QC): 5 Lower Body Dressing (QC): 5 On/Off Footwear (QC): 4 (With AE) Additional Goals: 1-Demonstrate ADL Tasks, 2-Verbalize Understanding, 3- ImproveStrength/Vanessa 1=Demonstrate adherence to instructed precautions during ADL tasks. 2=Patient will verbalize/demonstrate understanding of assistive devices/modifications for ADL. 3=Patient will improve strength/tolerance for activity to enable patient to perform ADL's. OT Education/Plan Problem List/Assessment Assessment: Decreased Activ Tolerance, Decreased UE Strength, Dependent Transfers, Impaired Bed Mobility, Impaired Cognition, Impaired Funct Balance, Impaired I ADL's, Impaired Self-Care Skills Discharge Recommendations Plan/Recommendations: Continue POC Therapy Discharge Recommendati: 24 Hour Supervision, Post Acute OT Treatment Plan/Plan of Care Treatment,Training & Education: Yes Patient would benefit from OT for education, treatment and training to promote independence in ADL's, mobility, safety and/or upper extremity function for ADL's. Plan of Care: ADL Retraining, Functional Mobility, UE Funct Exercise/Act Treatment Duration: Dec 30, 2022 Frequency: 3 times per week (3-5x/week) Estimated Hrs Per Day: .25 hour per day Agreement: Yes Rehab Potential: Fair Time Start Time: 09:30 Stop Time: 09:42 DATE: Dec 09, 2022 Total Time Billed (hr/min): 12 Billed Treatment Time 1, HERMAN CHAPIN OT Dec 09, 2022 13:23
--- NOTE | 2022-12-09 13:28 | Progress Note - Hospitalist ---
YESI ELIASEB 12/09/22 1328: Subjective HPI/CC On Admission Date Seen by Provider: Dec 09, 2022 Time Seen by Provider: 08:15 82 year old female with history of hypertension, hypothyroidism, anxiety, and osteoporosis who has been having confusion and falls at home for the past week. She reports at least 6 falls at home in the past week due to dizziness. She denies any injuries or LOC from the fall. She reports having chronic intermittent dizziness at home that she reports feels as though the ground is unsteady. While in the ED yesterday her initial BP was 215/96 mmHg, she was found to have an UTI based on urinalysis results, and a chest x ray revealed left basilar opacitied suggestive of atelectasis vs. infection. Head CT ruled out acute ischemia, hemorrhage, or mass and revealed chronic microvascular disease. When seen today patient appeared alert and oriented initially but upon further questioning was alert to self only. She denies headache, dizziness, chest pain, palpitations, SOB, cough, abd pain, N/V/D, or dysuria at this time. She does report chronic urinary incontinence. Patient reports living at home w ith her sone who was seen later in the morning. He reports confusion and falls is an ongoing concern. He also reports she has had poor appetite and has been drinking ensures to try to compensate. Recently she has been having a more dificult time swallowing pills at home. Subjective/Events-last exam Pt was doing well and was sleeping before interview. Upon awakening pt stated t hat she is feeling better than yesterday. Pt was without any complaints at this time. Pt is poor historian. Review of Systems General: No Chills, No Night Sweats HEENT: No Head Aches, No Visual Changes, No Eye Pain Pulmonary: No Dyspnea, No Cough Cardiovascular: No: Chest Pain, Palpitations Gastrointestinal: No: Nausea, Vomiting, Abdominal Pain, Diarrhea, Constipation Genitourinary: No Dysuria, No Frequency Neurological: No: Numbness Objective Exam Vital Signs Vital Signs Date Time Temp Pulse Resp B/P (MAP) Pulse Ox O2 Delivery O2 Flow Rate FiO2 12/09/22 12:00 36.5 91 15 147/65 (92) 96 Room Air 12/07/22 16:14 21 Capillary Refill : Less Than 3 Seconds General Appearance: No Apparent Distress Respiratory: Chest Non Tender, Lungs Clear, Normal Breath Sounds Cardiovascular: Regular Rate, Rhythm, No Edema, No Murmur, Normal Peripheral Pulses Gastrointestinal: Normal Bowel Sounds, Non Tender, Soft Results/Procedures Lab Laboratory Tests 12/09/22 05:18 Patient resulted labs reviewed. Assessment/Plan Assessment and Plan Assess & Plan/Chief Complaint Dementia Progressively worse in the past few months Concern for Dysphasia Swallow assessment Encephalopathy Secondary to UTI and CAP Urinalysis revealed Nitrite (+), trace leukocytes & RBCs, and large bacteria present. Culture: Gram Negative Rods Continue Abx; Switch to oral medication after final micro report and if able to swallow Hypertension Continue Labetalol & Hydralazine Begin Lisopril Anxiety Buspirone DVT Prophylaxis SCDs ALEXANDREA AKINS MD 12/09/22 1713: Subjective HPI/CC On Admission Time Seen by Provider: 11:50 Assessment/Plan Assessment and Plan Assess & Plan/Chief Complaint Continue antibiotics. Continue therapies. SW consulted for likely SNF placement. Diagnosis/Problems Diagnosis/Problems (1) Dementia Status: Chronic (2) Delirium Status: Acute (3) UTI (urinary tract infection) Status: Acute Qualifiers: Qualified Codes: N30.01 - Acute cystitis with hematuria (4) PNA (pneumonia) Status: Acute (5) HTN (hypertension) Status: Acute Qualifiers: Qualified Codes: I10 - Essential (primary) hypertension (6) Debility Status: Acute Supervisory-Addendum Brief Verification & Attestation Participated in pt care: history, MDM, physical Personally performed: exam, history, MDM, supervision of care Care discussed with: Medical Student Procedures: n/a Results interpretation: Verified all documentation A medical student performed and documented this service in my presence. I reviewed and verified all information documented by the medical student and made modifications to such information, when appropriate. I personally performed the physical exam and medical decision making. REENA ELIAS Dec 09, 2022 13:28 ALEXANDREA AKINS MD Dec 09, 2022 17:13
[2022-12-09] MEDS ORDERED: BUSP10TA95 PO (13:29)
[2022-12-09] MEDS ORDERED: ACET-2650 PO (13:32)
[2022-12-09] MEDS ORDERED: NAPR220T66 PO (13:33)
[2022-12-09] MEDS: cefTRIAXone 1 GM PRE-MIX 50 ML IV SCH (15:15)
[2022-12-09] MEDS ORDERED: lisINopril 20 MG (PRINIVIL) TABLET PO NR (17:30)
[2022-12-09] MEDS: LABETALOL 200 MG (NORMODYNE) TAB PO SCH (19:58)
[2022-12-10 03:35] VITALS: BP 164/81
[2022-12-10 05:55] LABS: HEMOGLOBIN 13.1 g/dL (11.5-16.0); MEAN PLATELET VOLUME 11.9 fL (9.0-12.2); WHITE BLOOD COUNT 8.2 10^3/uL (4.3-11.0)
[2022-12-10 06:10] LABS: POTASSIUM 3.6 MMOL/L (3.6-5.0)
[2022-12-10 06:11] LABS: CALCIUM 9.7 MG/DL (8.5-10.1)
[2022-12-10 06:16] LABS: CREATININE SERUM 0.82 MG/DL (0.60-1.30)
[2022-12-10 07:24] VITALS: BP 176/90
[2022-12-10] MEDS: MELOXICAM 7.5 MG (MOBIC) TABLET PO SCH (08:57)
[2022-12-10] MEDS: busPIRone 10 MG (BUSPAR) TAB PO SCH (08:57)
[2022-12-10] MEDS: AZITHROMYCIN 250 MG TAB (ZITHROMAX) PO SCH (08:57)
[2022-12-10] MEDS ORDERED: lisINopril 20 MG (PRINIVIL) TABLET PO SCH (09:00)
[2022-12-10] MEDS ORDERED: amLODIPine 5 MG (NORVASC) TAB PO SCH (09:00)
--- NOTE | 2022-12-10 09:16 | Physical Therapy Daily Note ---
PT Daily Note-Current Subjective Patient in bed pre tx, agrees to PT after a lot of encouragement from therapist and nurse, has some pain but cannot state where it is. Pain Section J - Health Conditions 1. Rarely or not at all 2. Occasionally 3. Frequently 4. Almost constantly 8. Unable to answer Pain Effect on Sleep: 3 Pain Interference with Therapy: 3 Pain Interference w/Day-to-Day: 3 Appearance Patient in recliner post tx with nurse call, phone, tray, all needs met. Mental Status Patient Orientation: Person, Place, Time Transfers SCALE: Activities may be completed with or without assistive devices. 2-Cwetksslfx-zocjqpk completes the activity by him/herself with no assistance from a helper. 5-Set-up or Clean-up Assistance-helper sets up or cleans up; patient completes activity. [place] assists only prior to or following the activity. 4-Supervision or Touching Assistance-helper provides verbal cues and/or touching/steadying and/or contact guard assistance as patient completes activity. Assistance may be provided throughout the activity or intermittently. 3-Partial/Moderate Assistance-helper does LESS THAN HALF the effort. [place] lifts, holds or supports trunk or limbs, but provides less than half the effort. 2-Substantial/Maximal Assistance-helper does MORE THAN HALF the effort. [place] lifts or holds trunk or limbs and provides more than half the effort. 4-Mhfhqnknm-detwcd does ALL the effort. Patient does none of the effort to complete the activity. Or, the assistance of 2 or more helpers is required for the patient to complete the activity. If activity was not attempted, code reason: 7-Patient Refused. 9-Not Applicable-not attempted and the patient did not perform the activity before the current illness, exacerbation or injury. 10-Not Attempted due to Environmental Limitations-(lack of equipment, weather restraints, etc.). 88-Not Attempted due to Medical Conditions or Safety Concerns. Lying to Sitting/Side of Bed(Q: 3 Sit to Stand (QC): 3 Chair/Tyb-kd-Rxrfy Xfer(QC): 3 Min assist for supine to sit, mod assist for sit to stand, mod assist for stand pivot transfer to recliner. Patient is able to take several steps over to the recliner but requires tactile cues and some guiding from therapist, she doesn't seem to be able to initiate it. Weight Bearing Right Lower Extremity: Right Full Weight Bearing Left Lower Extremity: Left Full Weight Bearing Treatments transfer Assessment Current Status: Poor Progress patient will not perform LE exercise after transfer, states she is too tired PT Short Term Goals Short Term Goals Time Frame: Dec 16, 2022 Roll Left & Right: 3 Sit to lyin Lying to sitting on side of be: 3 Sit to stand: 3 Chair/huk-qc-hvxri transfer: 3 Toilet transfer: 3 Walk 10 feet: 3 Walk 50 feet with two turns: 2 PT Customer Experience Retail Clerk Goals Customer Experience Retail Clerk Goals PT Detention Goals Time Frame: Dec 24, 2022 Roll Left & Right (QC): 4 Sit to Lying (QC): 4 Lying-Sitting on Side/Bed(QC): 4 Sit to Stand (QC): 4 Chair/Svx-ql-Wwuzs Xfer(QC): 4 Toilet Transfer (QC): 4 Does the Patient Walk: Yes Walk 10 feet (QC): 4 Walk 50ft with 2 Turns (QC): 4 Walk 150 ft (QC): 3 PT Plan Problem List Problem List: Activity Tolerance, Functional Strength, Safety, Balance, Gait, Transfer, Bed Mobility, ROM Treatment/Plan Treatment Plan: Continue Plan of Care Treatment Plan: Bed Mobility, Education, Functional Activity Vanessa, Functional Strength, Group Therapy, Gait, Safety, Therapeutic Exercise, Transfers Treatment Duration: Dec 24, 2022 Frequency: 6 times per week Estimated Hrs Per Day: .25 hour per day Patient and/or Family Agrees t: Yes Safety Risks/Education Patient Education: Transfer Techniques, Correct Positioning, Safety Issues Teaching Recipient: Patient Teaching Methods: Demonstration, Discussion Response to Teaching: Reinforcement Needed Time Time In: 0853 Time Out: 902 DATE: Dec 10, 2022 Total Billed Treatment Time: 10 Total Billed Treatment 1 visit FA CARLA LOPEZ PT Dec 10, 2022 09:16
--- NOTE | 2022-12-10 09:18 | Speech Therapy Daily Note ---
Speech Daily Progress Note Subjective Date Seen by Provider: Dec 10, 2022 Time Seen by Provider: 08:34 The patient was lying in bed, sleeping, upon entrance to her room by the clinician. The patient woke to a verbal greeting from the clinician, however, quickly returned to sleep. Maximum encouragement was required by the clinician for continued participation in the treatment session. Per patient, "I don't get up this early." Objective Orientation: The clinician discussed and reviewed orientation information with the patient on this date. The patient stated, "What time is it?" The clinician encouraged the patient to locate the clock on the wall for the time, however, the patient would not complete a right eye gaze to locate the item. The time was provided to the patient and the clinician asked, "Is it 0847 am or pm?" The patient stated, "I don't know." The patient was encouraged to assess her environment for cues of the time of day. The patient said, "I don't know." The patient was not oriented to month, day of the week, or year. The patient was or iented to self, location, and city. Orientation information was provided on the in-room white board. The patient was encouraged to direct her gaze to the white board to locate the orientation information. Again, the patient stated, "I don't care," but did report she was able to see the white board and the information. Safe swallowing precautions were discussed in detail. The patient continued to state she did not have an appetite and was not interested in the clinician placing her breakfast order. Due to this, the clinician practiced small sips with the water at bedside. The patient consumed four straw drinks of water without s/s of suspected aspiration. The patient politely deferred any additional trials regardless of gentle verbal encouragement. The clinician does recommend meal set-up to aid the patient is consuming the items present. Assessment Assessment Current Status: Fair Progress Treatment Plan Continue Plan of Care Speech Short Term Goals Short Term Goals Short Term Goals 1. The patient will demonstrate 80% accuracy with orientation information with mild visual cues. Time Frame-STG: Four Days. Speech Operations Vocational Instructor Goals Operations Vocational Instructor Goals 1. The patient will demonstrate improved cognitive linguistic skills for safe discharge to the least restrictive environment. Time Frame: One Week. Speech-Plan Treatment Plan Speech Therapy Treatment Plan: Continue Plan of Care Treatment Duration: Dec 09, 2022 Frequency: 4 times per week Estimated Hrs Per Day: .25 hour per day Rehab Potential: Fair Safety Risks/Education Teaching Recipient: Patient Teaching Methods: Demonstration, Discussion Response to Teaching: Reinforcement Needed Education Topics Provided: Orientation Strategies, Safe Swallowing Precautions Time Speech Therapy Time In: 08:34 Speech Therapy Time Out: 08:55 DATE: Dec 10, 2022 Total Billed Time: 21 Billed Treatment Time 1, DYST, SLROME ARCE Dec 10, 2022 09:18
[2022-12-10 11:24] VITALS: BP 196/99
[2022-12-10] MEDS: hydrALAZINE (APESOLINE) 20 MG/ML VIAL IV PRN (11:35)
[2022-12-10] MEDS ORDERED: BUSP10TA95 PO (11:49)
[2022-12-10] MEDS ORDERED: LISI20TA26 PO (11:49)
[2022-12-10] MEDS ORDERED: MELO7.5T46 PO (11:49)
[2022-12-10] MEDS ORDERED: AMLO-250 PO (11:49)
[2022-12-10] MEDS ORDERED: CEFD300C3 PO (11:49)
[2022-12-10] MEDS ORDERED: FOLI-88 PO (11:49)
[2022-12-10] MEDS ORDERED: LABE300T4 PO (11:49)
--- NOTE | 2022-12-10 13:02 | Occupational Ther Daily Note ---
OT Current Status-Daily Note Subjective Pt dozing in recliner. Nrsg in room. Pt agrees to therapy. Pt c/o pain but does not rate or state where pain is. Mental Status/Objective Patient Orientation: Person, Confused Attachments: IV ADL-Treatment Pt requires assist to sequence or complete ADLs. Assist to position in chair then assist to cleanse hair. After therapy, pt sitting in recliner with call light/phone in reach. Safety measures in place. All needs met. Nrsg in room. Therapy Code Descriptions/Definitions Functional [place] Measure: 0=Not Assessed/NA 4=Minimal Assistance 1=Total Assistance 5=Supervision or Setup 2=Maximal Assistance 6=Modified [place] 3=Moderate Assistance 7=Complete IndependenceSCALE: Activities may be completed with or without assistive devices. 3-Xqbfztrvhb-vfhmigl completes the activity by him/herself with no assistance from a helper. 5-Set-up or Clean-up Assistance-helper sets up or cleans up; patient completes activity. [place] assists only prior to or following the activity. 4-Supervision or Touching Assistance-helper provides verbal cues and/or touching/steadying and/or contact guard assistance as patient completes activity. Assistance may be provided throughout the activity or intermittently. 3-Partial/Moderate Assistance-helper does LESS THAN HALF the effort. [place] lifts, holds or supports trunk or limbs, but provides less than half the effort. 2-Substantial/Maximal Assistance-helper does MORE THAN HALF the effort. [place] lifts or holds trunk or limbs and provides more than half the effort. 1-Rivjlbune-czpyed does ALL the effort. Patient does none of the effort to complete the activity. Or, the assistance of 2 or more helpers is required for the patient to complete the activity. If activity was not attempted, code reason: 7-Patient Refused. 9-Not Applicable-not attempted and the patient did not perform the activity before the current illness, exacerbation or injury. 10-Not Attempted due to Environmental Limitations-(lack of equipment, weather restraints, etc.). 88-Not Attempted due to Medical Conditions or Safety Concerns. OT Short Term Goals Short Term Goals Time Frame: Dec 23, 2022 Eatin Oral hygiene: 4 Toileting hygiene: 3 Shower/bathe self: 3 Upper body dressin Lower body dressin Putting on/taking off footwear: 3 OT Prison Goals Aircraft Inspection Record Clerk Goals Time Frame: Dec 30, 2022 Eating (QC): 6 Oral Hygiene (QC): 5 Toileting Hygiene (QC): 4 Shower/Bathe Self (QC): 4 Upper Body Dressing (QC): 5 Lower Body Dressing (QC): 5 On/Off Footwear (QC): 4 (With AE) Additional Goals: 1-Demonstrate ADL Tasks, 2-Verbalize Understanding, 3- ImproveStrength/Vanessa 1=Demonstrate adherence to instructed precautions during ADL tasks. 2=Patient will verbalize/demonstrate understanding of assistive devices/modifications for ADL. 3=Patient will improve strength/tolerance for activity to enable patient to perform ADL's. OT Education/Plan Problem List/Assessment Assessment: Decreased Activ Tolerance, Decreased Safety Aware, Impaired Cognition, Impaired Self-Care Skills Discharge Recommendations Plan/Recommendations: Continue POC Treatment Plan/Plan of Care Patient would benefit from OT for education, treatment and training to promote independence in ADL's, mobility, safety and/or upper extremity function for ADL's. Plan of Care: ADL Retraining, Functional Mobility, UE Funct Exercise/Act Treatment Duration: Dec 30, 2022 Frequency: 3 times per week (3-5x/week) Estimated Hrs Per Day: .25 hour per day Agreement: Yes Rehab Potential: Fair Time Start Time: 09:34 Stop Time: 09:57 DATE: Dec 10, 2022 Total Time Billed (hr/min): 23 Billed Treatment Time 1 visit-ADL 2 (23 min) NORMAN WRIGHT Dec 10, 2022 13:02
[2022-12-10 13:10] VITALS: BP 156/82
[2022-12-10 14:13] VITALS: BP 156/82
--- NOTE | 2022-12-10 14:48 | Discharge Summary ---
REENA ELIAS 12/10/22 1448: Diagnosis/Chief Complaint Date of Admission Dec 07, 2022 at 14:42 Date of Discharge Dec 10, 2022 at 14:00 Admission Diagnosis encephalopathy, UTI Primary Care Johnny Garcia MD Discharge Diagnosis (1) Dementia Status: Chronic (2) Delirium Status: Acute (3) UTI (urinary tract infection) Status: Acute (4) PNA (pneumonia) Status: Acute (5) HTN (hypertension) Status: Acute (6) Debility Status: Acute Discharge Summary Discharge Physical Exam Allergies: Coded Allergies: Sulfa (Sulfonamide Antibiotics) (Verified Allergy, Unknown, 09/01/06) Vitals & I&Os Vital Signs Date Time Temp Pulse Resp B/P (MAP) Pulse Ox O2 Delivery O2 Flow Rate FiO2 12/10/22 14:13 36.3 101 18 156/82 96 Room Air 12/07/22 16:14 21 Respiratory: Chest Non Tender, Lungs Clear, Normal Breath Sounds Cardiovascular: Regular Rate, Rhythm, No Edema, No Murmur, Normal Peripheral Pulses Gastrointestinal: Normal Bowel Sounds, Non Tender, Soft Skin: Normal Color, Warm/Dry Neurologic/Psychiatric: Alert, Normal Mood/Affect Hospital Course 82 year old female with history of hypertension, hypothyroidism, anxiety, and dementia presented to ED 12/07/22 due to increased confusion and falls. Pt is a poor historian. Upon arrival her initial BP was 215/96 mmHg, she was found to have an UTI based on urinalysis results, and a chest x ray revealed left basilar opacitied suggestive of atelectasis vs. infection. Pt has had poor appetite and was trying to compensate with drinking ensures. Urine Cultures were positive for E. Coli and Proteus Mirabillis. During hospital stay, began blood pressure management and UTI management. Today pt was started on oral antibiotics and discharged to [facility]. Labs (last 24 hrs) Laboratory Tests 12/10/22 05:33: White Blood Count 8.2, Red Blood Count 3.99, Hemoglobin 13.1, Hematocrit 38, Mean Corpuscular Volume 95, Mean Corpuscular Hemoglobin 33, Mean Corpuscular Hemoglobin Concent 35, Red Cell Distribution Width 12.8, Platelet Count 106L, Mean Platelet Volume 11.9, Percent Immature Platelet Fraction 8.3H, Sodium Level 137, Potassium Level 3.6, Chloride Level 104, Carbon Dioxide Level 24, Anion Gap 9, Blood Urea Nitrogen 21H, Creatinine 0.82, Estimat Glomerular Filtration Rate 70, BUN/Creatinine Ratio 26, Glucose Level 96, Calcium Level 9.7 Microbiology 12/07/22 Urine Culture - Final, Complete Escherichia coli Proteus mirabilis Patient resulted labs reviewed. Discharge Home Medications: Active Scripts Active Cefdinir 300 Mg Capsule 300 Mg PO BID 7 Days Lisinopril 20 Mg Tablet 40 Mg PO DAILY 30 Days Amlodipine Besylate 5 Mg Tablet 5 Mg PO DAILY 30 Days Buspirone HCl 10 Mg Tablet 10 Mg PO BID 30 Days Multi-Vitamin Gummies (Folic Acid/Multivit-Min/Lutein) 200 Mcg-137.5 Mcg Tab.chew 1 Each PO DAILY 30 Days Labetalol HCl 300 Mg Tablet 300 Mg PO HS 30 Days Meloxicam 7.5 Mg Tablet 7.5 Mg PO DAILY 30 Days Instructions to patient/family Please see electronic discharge instructions given to patient. ALEXANDREA AKINS MD 12/10/22 1539: Diagnosis/Chief Complaint Discharge Date: Dec 10, 2022 Discharge Time: 13:00 Discharge Diagnosis (1) Dementia Status: Chronic (2) Delirium Status: Acute (3) UTI (urinary tract infection) Status: Acute (4) PNA (pneumonia) Status: Acute (5) HTN (hypertension) Status: Acute (6) Debility Status: Acute Discharge Summary Discharge Physical Exam Allergies: Coded Allergies: Sulfa (Sulfonamide Antibiotics) (Verified Allergy, Unknown, 09/01/06) General Appearance: No Apparent Distress, WD/WN Respiratory: Lungs Clear, No Respiratory Distress Cardiovascular: Regular Rate, Rhythm, No Murmur Gastrointestinal: Normal Bowel Sounds, Soft Extremity: Normal Inspection, No Pedal Edema Neurologic/Psychiatric: Alert, Normal Mood/Affect Hospital Course 82 year old female admitted with confusion. She was treated for UTI and PNA. She has some baseline memory issues with worsening over the past few months, likely dementia. Her course was complicated by HTN and her BP regimen was adjusted. She was also debilitated and was discharged to [facility] for ongoing therapy needs. Discussion & Recommendations Discharge Planning: >30 minutes discharge planning Supervisory-Addendum Brief Verification & Attestation Participated in pt care: history, MDM, physical Personally performed: exam, history, MDM, supervision of care Care discussed with: Medical Student Procedures: n/a Results interpretation: Verified all documentation A medical student performed and documented this service in my presence. I reviewed and verified all information documented by the medical student and made modifications to such information, when appropriate. I personally performed the physical exam and medical decision making. Problem Qualifiers (1) UTI (urinary tract infection): Urinary tract infection type: acute cystitis Hematuria presence: with hematuria Qualified Codes: N30.01 - Acute cystitis with hematuria (2) HTN (hypertension): Hypertension type: primary hypertension Qualified Codes: I10 - Essential (primary) hypertension REENA ELIAS Dec 10, 2022 14:48 ALEXANDREA AKINS MD Dec 10, 2022 15:39
--- NOTE | 2022-12-10 15:34 | Discharge Inst-Skilled Nursing ---
Discharge Inst-Skilled NF Reconcile Patient Problems Problems Reviewed?: Yes Consult/Follow Up/Orders Follow Up Appt.: next skilled nursing rounds Skilled NF Admit to: [facility] Certification (SNF) I certify that SNF services are required to be given on an inpatient basis because of the above named patient's need for prison care on a continuing basis for the conditions(s) for which he/she was receiving inpatient hospital services prior to his/her transfer to the SNF. Nursing Home Facility Order: Nursing Services, Cardiovascular Specialist-Evaluate & Treat, Physical Therapy-Evaluate & Treat, Speech Language-Evaluate & Treat Oxygen Delivery Method: Room Air Discharge Diet: No Restrictions Daily Activity as Tolerated: Yes Resuscitation Status: Full Code New & Resume Previous Orders Pearl Akins Dec 10, 2022 15:33 PEARL AKINS MD Dec 10, 2022 15:34
== END 2022-12-10 14:00 | DRG 689 ==
LOC: EDUNIT# 12:26 → ER 12:27 → 4TH 14:42
PROVIDERS: ADMIT Family Medicine; ATTEND Internal Medicine
DX: N39.0 Urinary tract infection, site not specified (principal); J18.9 Pneumonia, unspecified organism; G93.40 Encephalopathy, unspecified; F03.90 Unspecified dementia, unspecified severity, without behavioral disturbance, psychotic disturbance, mood disturbance, and anxiety; R41.0 Disorientation, unspecified; I10 Essential (primary) hypertension; R53.81 Other malaise; E03.9 Hypothyroidism, unspecified; F41.9 Anxiety disorder, unspecified; B96.20 Unspecified Escherichia coli [E. coli] as the cause of diseases classified elsewhere; B96.4 Proteus (mirabilis) (morganii) as the cause of diseases classified elsewhere; M81.0 Age-related osteoporosis without current pathological fracture
CPT/HCPCS: 36415; 51701; 70450; 71045; 80048; 80053; 80306; 81000; 84484; 85025; 85027; 87077; 87088; 87186; 93005; 94760

== ENCOUNTER 2023-04-18 18:38 | Emergency (ER) | payer MEDICARE, MEDICAID ==
[~2023-04-18] VITALS: Ht 157 cm; Wt 63.0 kg
[~2023-04-18 18:38] MED LIST changes: +ACET-2650 PO; +AMLO-250 PO; +BUSP10TA95 PO; +CEFD300C3 PO; +FOLI-88 PO; +LABE300T4 PO; +LISI20TA26 PO; +MELO7.5T46 PO; +NAPR220T66 PO
--- NOTE | 2023-04-18 19:26 | Diagnostic Imaging Report ---
PROCEDURE: CT head, face, and cervical spine without contrast. TECHNIQUE: Multiple contiguous axial images were obtained through the head, neck, and facial bones without the use of intravenous contrast. Sagittal and coronal reformations through the cervical spine and facial bones were also performed. Auto Exposure Controls were utilized during the CT exam to meet ALARA standards for radiation dose reduction. INDICATION: Trauma to head and cervical spine as well as facial region. CT HEAD: COMPARISON: 12/07/2022. CT HEAD: Ventricles and sulci remain diffusely prominent. There is extensive low-density throughout the cerebral white matter. No hemorrhage is identified. There is no abnormal mass effect or shift of midline structures. There is a prominent left frontal scalp contusion. No underlying fracture is identified. Visualized paranasal sinuses are clear. There is extensive atherosclerotic calcification within distal internal, carotid and vertebral arteries. IMPRESSION: Acute left frontal scalp contusion without CT evidence of acute intracranial abnormality. MAXILLOFACIAL CT: Large left frontal scalp contusion is identified without evidence of underlying fracture. Remainder of facial bones are also intact. Temporomandibular joints are well aligned. Globes are unremarkable and there is no evidence of infraorbital hematoma. No paranasal sinus air-fluid level is seen. There is advanced carious disease involving the oral cavity with periapical lucencies which could be due to abscesses. IMPRESSION: Left frontal scalp contusion without additional acute maxillofacial injury identified. CT CERVICAL SPINE: Advanced degenerative findings are seen at the C1-C2 level. There is moderate lower cervical disc space narrowing with advanced degenerative facet arthropathy. This leads to grade 1 anterolisthesis of C4 on C5 and C5 on C6. No acute fracture is identified. There is no evidence of paraspinous hematoma. IMPRESSION: Advanced degenerative findings are present in the cervical spine, however, no acute cervical spinal injury is identified. Dictated by: Dictated on workstation # [id number]
--- NOTE | 2023-04-18 19:40 | ED Fall/Injury ---
General Chief Complaint: Trauma-Non Activation Stated Complaint: FALL Nursing Triage Note: pt presents to ed via ems from [facility] for unwitnessed fall landing [facility]. pt reports she doesnt remember falling but staff assumes she fell out of her wc. pt denies neck or back pain. pt has hematoma to forehead. Source: patient, EMS, long term records Exam Limitations: no limitations History of Present Illness Date Seen by Provider: April 18, 2023 Time Seen by Provider: 18:40 Initial Comments This 83-year-old woman is brought to the emergency room from [facility] via EMS after having a fall from same level. Fall was unwitnessed. She was believed to have fallen while trying to get up out of her wheelchair. Patient does not recall the incident. She has a large contusion/hematoma on the forehe ad. She reported some neck pain on my exam which she states is chronic. EMS attempted to place a c-collar but patient did not tolerate it. There is no other evident injury. Patient is alert and conversational but disoriented stating it is June 1987 and incorrect age. She has dementia at baseline. Allergies and Home Medications Allergies Coded Allergies: Sulfa (Sulfonamide Antibiotics) (Verified Allergy, Unknown, 09/01/06) Patient Home Medication List Home Medication List Reviewed: Yes Amlodipine Besylate (Amlodipine Besylate) 5 Mg Tablet, 5 MG PO DAILY Prescribed by: ALEXANDREA AKINS on 12/10/22 114 Buspirone HCl (Buspirone HCl) 10 Mg Tablet, 10 MG PO BID Prescribed by: ALEXANDREA AKINS on 12/10/22 114 Cefdinir (Cefdinir) 300 Mg Capsule, 300 MG PO BID Prescribed by: ALEXANDREA AKINS on 12/10/22 114 Folic Acid/Multivit-Min/Lutein (Multi-Vitamin Gummies) 200 Mcg-137.5 Mcg Tab.chew, 1 EACH PO DAILY Prescribed by: ALEXANDREA AKINS on 12/10/22 114 Labetalol HCl (Labetalol HCl) 300 Mg Tablet, 300 MG PO HS Prescribed by: ALEXANDREA AKINS on 12/10/22 114 Lisinopril (Lisinopril) 20 Mg Tablet, 40 MG PO DAILY Prescribed by: ALEXANDREA AKINS on 12/10/22 114 Meloxicam (Meloxicam) 7.5 Mg Tablet, 7.5 MG PO DAILY Prescribed by: ALEXANDREA AKINS on 12/10/22 1149 Review of Systems Review of Systems Constitutional: no symptoms reported Eyes: No Symptoms Reported Ears, Nose, Mouth, Throat: no symptoms reported Respiratory: no symptoms reported Cardiovascular: no symptoms reported Gastrointestinal: no symptoms reported Genitourinary: no symptoms reported Musculoskeletal: see HPI Skin: see HPI Psychiatric/Neurological: See HPI Past Eiycunl-Milovz-Cxmerx Hx Patient Social History Tobacco Use?: No Substance use?: No Alcohol Use?: No Pt feels they are or have been: No Past Medical History Surgery/Hospitalization HX: pmh: dementia, hypothyroidism, anxiety, htn, difficulty walking, osteoporosis, uti, constipation, pneumonia Surgeries: Yes (HERNIA REPAIR) Appendectomy, Gallbladder, Hysterectomy, Tonsillectomy Respiratory: No Cardiac: Yes Hypertension Neurological: Yes Dementia Gastrointestinal: Yes (HERNIA) Musculoskeletal: Yes Osteoporosis Endocrine: Yes Hypothyroidsim Cancer: No Psychosocial: Yes Anxiety Family Medical History No Pertinent Family Hx Physical Exam Vital Signs Vital Signs - First Documented 04/18/23 04/18/23 18:40 20:09 Temp 36.0 Pulse 65 Resp 16 B/P (MAP) 149/60 (89) Pulse Ox 98 O2 Delivery Room Air Capillary Refill : Less Than 3 Seconds Height, Weight, BMI Height: 5'2.00" Weight: 200lbs. oz. [id number]; 25.00 BMI Method:Stated General Appearance: WD/WN, no apparent distress HEENT: PERRL/EOMI, pharynx normal, other (No apparent dental injury. Large contusion/hematoma on the forehead.) Neck: normal inspection, tender midline (Slight tenderness over posterior cervical spine) Cardiovascular: regular rate, rhythm, no edema, other (Mild lower extremity edema) Respiratory: lungs clear, normal breath sounds, no respiratory distress, no accessory muscle use Gastrointestinal: normal bowel sounds, non tender, soft; No distended Extremities: non-tender, normal inspection, other (No tenderness with palpation or rotation of the hips) Neurologic/Psychiatric: no motor/sensory deficits, alert, normal mood/affect Skin: normal color, warm/dry, ecchymosis [place] Coma Score Best Eye Response: (4) Open Spontaneously Best Verbal Response: (4) Confused Conversation Best Motor Response: (6) Obeys Commands [place] Total: 14 Progress/Results/Core Measures Results/Orders My Orders Orders - FIORELLA GREGORY MD Ct Head/Face/Cervical Wo (04/18/23 18:50) Vital Signs/I&O 04/18/23 04/18/23 18:40 20:09 Temp 36.0 36.9 Pulse 65 61 Resp 16 16 B/P (MAP) 149/60 (89) 114/64 Pulse Ox 98 93 O2 Delivery Room Air Blood Pressure Mean: 89 Progress Progress Note : Progress Note CT of the head, face, and cervical spine was viewed by me and CT report was reviewed. I appreciated no bony or intracranial injuries on my interpretation. See report below: Patient was discharged in stable condition after review of imaging report. Diagnostic Imaging Diagonstic Imaging: CT Plain Films/CT/US/NM/MRI: facial bones, c-spine, head Comments NAME: NATTY HATFIELD [facility] REC#: [id number] PT STATUS: REG ER : 1940 PHYSICIAN: FIORELLA GREGORY MD ADMIT DATE: 04/18/23/ER Draft Date of Exam:04/18/23 CT HEAD/FACE/CERVICAL WO PROCEDURE: CT head, face, and cervical spine without contrast. TECHNIQUE: Multiple contiguous axial images were obtained through the head, neck, and facial bones without the use of intravenous contrast. Sagittal and coronal reformations through the cervical spine and facial bones were also performed. Auto Exposure Controls were utilized during the CT exam to meet ALARA standards for radiation dose reduction. INDICATION: Trauma to head and cervical spine as well as facial region. CT HEAD: COMPARISON: 12/07/2022. CT HEAD: Ventricles and sulci remain diffusely prominent. There is extensive low-density throughout the cerebral white matter. No hemorrhage is identified. There is no abnormal mass effect or shift of midline structures. There is a prominent left frontal scalp contusion. No underlying fracture is identified. Visualized paranasal sinuses are clear. There is extensive atherosclerotic calcification within distal internal, carotid and vertebral arteries. IMPRESSION: Acute left frontal scalp contusion without CT evidence of acute intracranial abnormality. MAXILLOFACIAL CT: Large left frontal scalp contusion is identified without evidence of underlying fracture. Remainder of facial bones are also intact. Temporomandibular joints are well aligned. Globes are unremarkable and there is no evidence of infraorbital hematoma. No paranasal sinus air-fluid level is seen. There is advanced carious disease involving the oral cavity with periapical lucencies which could be due to abscesses. IMPRESSION: Left frontal scalp contusion without additional acute maxillofacial injury identified. CT CERVICAL SPINE: Advanced degenerative findings are seen at the C1-C2 level. There is moderate lower cervical disc space narrowing with advanced degenerative facet arthropathy. This leads to grade 1 anterolisthesis of C4 on C5 and C5 on C6. No acute fracture is identified. There is no evidence of paraspinous hematoma. IMPRESSION: Advanced degenerative findings are present in the cervical spine, however, no acute cervical spinal injury is identified. Dictated on workstation # [id number] Dict: 04/18/231917 Trans: 04/18/231925 PJE [id number] Interpreted by: JUVENAL ROSAS MD Departure Impression Primary Impression: Fall on same level Qualified Codes: W18.30XA - Fall on same level, unspecified, initial encounter Additional Impressions: Facial contusion Qualified Codes: S00.83XA - Contusion of other part of head, initial encounter Dementia Qualified Codes: F03.90 - Unspecified dementia, unspecified severity, without behavioral disturbance, psychotic disturbance, mood disturbance, and anxiety Disposition: 01 HOME, SELF-CARE Condition: Stable Departure-Patient Inst. Decision time for Depature: 19:45 Referrals: TAYE GARZA MD (PCP/Family) Primary Care Physician Patient Instructions: Contusion (DC), Head injury in adults, Preventing falls in adults Add. Discharge Instructions: Do not get up without assistance or supervision. Ice the contusion/hematoma on the forehead and 20-minute intervals as tolerated to help with pain and swelling. You may take Tylenol (acetaminophen) up to 1000 mg every 6 hours as needed for pain. Follow-up with your primary care provider soon as possible. Monitor for worsening symptoms and return to the ER if there are concerns. Expect significant discoloration throughout the forehead and face that will migrate over the next 1 to 2 weeks as a result of this contusion/hematoma. Staff should exercise fall risk precautions. All discharge instructions reviewed with patient and/or family. Voiced understanding. Copy Copies To 1: TAYE GARZA MD, JOSHUA T MD April 18, 2023 19:40
[2023-04-18 20:09] VITALS: BP 114/64
== END 2023-04-18 20:12 | disposition home or self-care (01) ==
LOC: EDUNIT# 18:38 → ER 18:39
DX: S00.83XA Contusion of other part of head, initial encounter (principal); M54.2 Cervicalgia; F03.90 Unspecified dementia, unspecified severity, without behavioral disturbance, psychotic disturbance, mood disturbance, and anxiety; W05.0XXA Fall from non-moving wheelchair, initial encounter; Y92.129 Unspecified place in nursing home as the place of occurrence of the external cause
CPT/HCPCS: 70450; 70486; 72125

== ENCOUNTER 2023-04-22 18:32 | Emergency (ER) | payer MEDICARE, MEDICAID ==
[~2023-04-22] VITALS: Ht 157 cm; Wt 57.0 kg
--- NOTE | 2023-04-22 18:58 | ED Syncope ---
General Chief Complaint: Dizziness/Syncope Stated Complaint: SYNCOPE Nursing Triage Note: PT PRESENTS TO ED VIA EMS FROM [facility] FOR COMPLAINTS OF SYNCOPAL EPISODES AFTER HAVING A BOWEL MOVEMENT THIS EVENING. ACCORDING TO EMS LONGTERM STAFF WAS ASSISTING PT ON THE COMMODE AT THE TIME OF THE SYNCOPAL EPISODES SO SHE WAS ASSISTED TO A SITTING POSITION. PT ALSO HAS BRUISING TO FACE FROM A FALL ON 04/18. Source of Information: Patient, EMS, Prison Records, Old Records Exam Limitations: No Limitations History of Present Illness Date Seen by Provider: April 22, 2023 Time Seen by Provider: 18:33 Initial Comments Sowmya is an 83-year-old resident of [facility] who presents to the emergency room via EMS after having a syncopal episode. She got up to the commode with assistance of staff and had a syncopal episode after having a bowel movement. She had a second syncopal episode as she was being transferred off the commode. Patient does not remember the events. She is alert and conversational now. She does have dementia at baseline. She has significant bruising of her face from a fall she experienced on March 19. She had work-up in the emergency room for that fall. Blood pressures and heart rate are noted to be soft during initial evaluation. Patient's son eventually arrives to the ER. He wonders if she is receiving too many blood pressure medications because she has lost a significant amount of weight with progression of her dementia in recent months. She presently takes amlodipine, labetalol, and lisinopril. Allergies and Home Medications Allergies Coded Allergies: Sulfa (Sulfonamide Antibiotics) (Verified Allergy, Unknown, 09/01/06) Patient Home Medication List Home Medication List Reviewed: Yes Amlodipine Besylate (Amlodipine Besylate) 5 Mg Tablet, 5 MG PO DAILY Prescribed by: ALEXANDREA AKINS on 12/10/22 1149 Buspirone HCl (Buspirone HCl) 10 Mg Tablet, 10 MG PO BID Prescribed by: ALEXANDREA AKINS on 12/10/22 1149 Cefdinir (Cefdinir) 300 Mg Capsule, 300 MG PO BID Prescribed by: ALEXANDREA AKINS on 12/10/22 1149 Folic Acid/Multivit-Min/Lutein (Multi-Vitamin Gummies) 200 Mcg-137.5 Mcg Tab.chew, 1 EACH PO DAILY Prescribed by: ALEXANDREA AKINS on 12/10/22 1149 Labetalol HCl (Labetalol HCl) 300 Mg Tablet, 300 MG PO HS Prescribed by: ALEXANDREA AKINS on 12/10/22 1149 Lisinopril (Lisinopril) 20 Mg Tablet, 40 MG PO DAILY Prescribed by: ALEXANDREA AKINS on 12/10/22 114 Meloxicam (Meloxicam) 7.5 Mg Tablet, 7.5 MG PO DAILY Prescribed by: ALEXANDREA AKINS on 12/10/22 1149 Review of Systems Constitutional: no symptoms reported EENTM: see HPI Respiratory: no symptoms reported Cardiovascular: see HPI Gastrointestinal: no symptoms reported Genitourinary: no symptoms reported : No Musculoskeletal: no symptoms reported Skin: see HPI Psychiatric/Neurological: Other (Dementia) Past [id number] Hx Patient Social History Tobacco Use?: No Substance use?: No Alcohol Use?: No Pt feels they are or have been: No Past Medical History Surgery/Hospitalization HX: pmh: dementia, hypothyroidism, anxiety, htn, difficulty walking, osteoporosis, uti, constipation, pneumonia Surgeries: Yes (HERNIA REPAIR) Appendectomy, Gallbladder, Hysterectomy, Tonsillectomy Respiratory: No Cardiac: Yes Hypertension Neurological: Yes Dementia Gastrointestinal: Yes (HERNIA) Musculoskeletal: Yes Osteoporosis Endocrine: Yes Hypothyroidsim Cancer: No Psychosocial: Yes Anxiety Family Medical History No Pertinent Family Hx Physical Exam Vital Signs Vital Signs - First Documented 04/22/23 04/22/23 18:35 22:28 Temp 36.1 Pulse 56 Resp 12 B/P (MAP) 103/46 (65) Pulse Ox 96 O2 Delivery Room Air Capillary Refill : Less Than 3 Seconds Height, Weight, BMI Height: 5'2.00" Weight: 200lbs. oz. 90.918171gy; 23.00 BMI Method:Stated General Appearance: No Apparent Distress, WD/WN HEENT: PERRL/EOMI, Other (Extensive bruising on the face from fall on March 19) Neck: Other (Extensive bruising) Cardiovascular: Regular Rate, Rhythm, No Edema, No Murmur Respiratory: Lungs Clear, Normal Breath Sounds, No Accessory Muscle Use Gastrointestinal: Non Tender, Soft Extremities: Normal Inspection, Non Tender, Swelling (Mild) Neurologic/Psychiatric: Alert, No Motor/Sensory Deficits, Normal Mood/Affect Cranial Nerves: Normal Hearing, Normal Speech Motor/Sensory: No Motor Deficit, No Sensory Deficit Skin: Normal Color, Warm/Dry, Ecchymosis (Extensive on the neck and face) Progress/Results/Core Measures Results/Orders Lab Results Laboratory Tests Test 04/22/23 18:53 04/22/23 20:20 Range/Units White Blood Count 6.6 4.3-11.0 10^3/uL Red Blood Count 3.53 L 3.80-5.11 10^6/uL Hemoglobin 11.8 11.5-16.0 g/dL Hematocrit 34 L 35-52 % Mean Corpuscular Volume 97 80-99 fL Mean Corpuscular Hemoglobin 33 25-34 pg Mean Corpuscular Hemoglobin Concent 35 32-36 g/dL Red Cell Distribution Width 12.7 10.0-14.5 % Platelet Count 142 130-400 10^3/uL Mean Platelet Volume 11.3 9.0-12.2 fL Immature Granulocyte % (Auto) 0 % Neutrophils (%) (Auto) 54 42-75 % Lymphocytes (%) (Auto) 33 12-44 % Monocytes (%) (Auto) 9 0-12 % Eosinophils (%) (Auto) 3 0-10 % Basophils (%) (Auto) 1 0-10 % Neutrophils # (Auto) 3.5 1.8-7.8 10^3/uL Lymphocytes # (Auto) 2.2 1.0-4.0 10^3/uL Monocytes # (Auto) 0.6 0.0-1.0 10^3/uL Eosinophils # (Auto) 0.2 0.0-0.3 10^3/uL Basophils # (Auto) 0.0 0.0-0.1 10^3/uL Immature Granulocyte # (Auto) 0.0 0.0-0.1 10^3/uL Sodium Level 137 135-145 MMOL/L Potassium Level 3.9 3.6-5.0 MMOL/L Chloride Level 104 98-107 MMOL/L Carbon Dioxide Level 21 21-32 MMOL/L Anion Gap 12 5-14 MMOL/L Blood Urea Nitrogen 15 7-18 MG/DL Creatinine 0.87 0.60-1.30 MG/DL Estimat Glomerular Filtration Rate 65 BUN/Creatinine Ratio 17 Glucose Level 149 H 70-105 MG/DL Calcium Level 9.8 8.5-10.1 MG/DL Magnesium Level 1.5 L 1.6-2.4 MG/DL Urine Color YELLOW Urine Clarity CLEAR Urine pH 6.5 5-9 Urine Specific [place] 1.025 H 1.016-1.022 Urine Protein 1+ H NEGATIVE Urine Glucose (UA) NEGATIVE NEGATIVE Urine Ketones NEGATIVE NEGATIVE Urine Nitrite NEGATIVE NEGATIVE Urine Bilirubin NEGATIVE NEGATIVE Urine Urobilinogen 2.0 < = 1.0 MG/DL Urine Leukocyte Esterase NEGATIVE NEGATIVE Urine RBC (Auto) 2+ H NEGATIVE Urine RBC 10-25 H /HPF Urine WBC RARE /HPF Urine Crystals NONE /LPF Urine Bacteria NEGATIVE /HPF Urine Casts PRESENT /LPF Urine Hyaline Casts 2-5 H /LPF Urine Mucus SMALL H /LPF Urine Culture Indicated NO My Orders Orders - FIORELLA GREGORY MD Ekg Tracing (04/22/23 18:38) Basic Metabolic Panel (04/22/23 18:41) Cbc With Automated Diff (04/22/23 18:41) Magnesium (04/22/23 18:41) Ed Iv/Invasive Line Start (04/22/23 18:41) Monitor-Rhythm Ecg Trace Only (04/22/23 18:41) Ua Culture If Indicated (04/22/23 18:59) Magnesium 1 Gm/100 Ml Ivpb (Magnesium [place] (04/22/23 20:00) Ns Iv 1000 Ml (Sodium Chloride 0.9%) (04/22/23 20:00) Medications Given in ED Current Medications Medications Dose Ordered Sig/Carline Route Start Time Stop Time Status Last Admin Dose Admin Magnesium Sulfate/ Dextrose 100 ml @ 100 mls/hr ONCE ONCE IV 04/22/23 20:00 04/22/23 20:59 DC 04/22/23 20:14 100 MLS/HR Sodium Chloride 1,000 ml @ 0 mls/hr Q0M ONCE IV 04/22/23 20:00 04/22/23 20:01 DC 04/22/23 20:14 999 MLS/HR Vital Signs/I&O 04/22/23 04/22/23 18:35 22:28 Temp 36.1 Pulse 56 73 Resp 12 9 B/P (MAP) 103/46 (65) 133/65 Pulse Ox 96 94 O2 Delivery Room Air Blood Pressure Mean: 65 Progress Progress Note : Progress Note Work-up was relatively unremarkable including CBC, BMP, magnesium, and urinalysis. All labs were reviewed by me and interpreted by me. Labs were all unremarkable except for mildly low magnesium. EKG was unremarkable. Blood pressure and heart rate improved significantly after a liter of IV fluid. A gram of magnesium sulfate was infused for magnesium replacement. Patient was feeling well at the time of discharge. I discussed the strategy of call parameters on the blood pressure medications with patient's son. See discharge instructions for further discussion. Initial ECG Impression Date: April 22, 2023 Initial ECG Impression Time: 18:46 Initial ECG Rate: 76 Initial ECG Rhythm: Normal Sinus Initial ECG Intervals: Normal Initial ECG Impression: Normal Comment Normal sinus rhythm with no ST elevation or depression. No abnormal intervals or axis deviation. Departure Impression Primary Impression: Syncope Qualified Codes: R55 - Syncope and collapse Additional Impression: Hypomagnesemia Disposition: 01 HOME, SELF-CARE Condition: Improved Departure-Patient Inst. Decision time for Depature: 22:06 Referrals: TAYE GARCIA MD (PCP/Family) Primary Care Physician Patient Instructions: Low Magnesium Level, Syncope (fainting), Vasovagal Response Add. Discharge Instructions: Please arrange follow-up with Dr. Garcia as soon as possible for a medication review and recheck of magnesium levels. Obtain heart rate and blood pressure immediately before administering any blood pressure medications. Hold dose of labetalol if heart rate is less than 70 bpm. Hold amlodipine if systolic blood pressure is less than 120. Call physician if systolic blood pressure is less than 100 or greater than 160. Exercise caution when getting up from a lying position or up to feet for transfers. Allow extra time for adjustment to position changes and always supervise her when rising from a lying position or when standing to transfer. Encourage plenty of clear liquids and a well-balanced diet. All discharge instructions reviewed with patient and/or family. Voiced understanding. Copy Copies To 1: TAYE GARCIA MD, JOSHUA T MD April 22, 2023 18:58
[2023-04-22 19:10] LABS: BASOPHILS % (AUTO) 1 % (0-10); EOSINOPHILS # (AUTO) 0.2 10^3/uL (0.0-0.3); EOSINOPHILS % (AUTO) 3 % (0-10); HEMATOCRIT 34 % (35-52); HEMOGLOBIN 11.8 g/dL (11.5-16.0); LYMPHOCYTES # (AUTO) 2.2 10^3/uL (1.0-4.0); LYMPHOCYTES % (AUTO) 33 % (12-44); MEAN CORPUSCULAR HEMOGLOBIN 33 pg (25-34); MEAN CORPUSCULAR HGB CONC 35 g/dL (32-36); MEAN CORPUSCULAR VOLUME 97 fL (80-99); MEAN PLATELET VOLUME 11.3 fL (9.0-12.2); MONOCYTES # (AUTO) 0.6 10^3/uL (0.0-1.0); MONOCYTES % (AUTO) 9 % (0-12); NEUTROPHILS # (AUTO) 3.5 10^3/uL (1.8-7.8); NEUTROPHILS % (AUTO) 54 % (42-75); PLATELET COUNT 142 10^3/uL (130-400); WHITE BLOOD COUNT 6.6 10^3/uL (4.3-11.0)
[2023-04-22 19:28] LABS: POTASSIUM 3.9 MMOL/L (3.6-5.0)
[2023-04-22 19:29] LABS: CALCIUM 9.8 MG/DL (8.5-10.1)
[2023-04-22 19:33] LABS: CREATININE SERUM 0.87 MG/DL (0.60-1.30)
[2023-04-22 19:36] LABS: MAGNESIUM 1.5 MG/DL (1.6-2.4)
[2023-04-22] MEDS ORDERED: NS IV 1000 ML 1,000 ML IV ONE (20:00)
[2023-04-22] MEDS ORDERED: MAGNESIUM 1 GM/100 ML IVPB 100 ML IV ONE (20:00)
[2023-04-22 20:41] LABS: BILIRUBIN,URINE NEGATIVE (NEGATIVE); CLARITY,URINE CLEAR; COLOR,URINE YELLOW; GLUCOSE, URINE (UA) NEGATIVE (NEGATIVE); KETONES,URINE NEGATIVE (NEGATIVE); LEUKOCYTE ESTERASE ,URINE NEGATIVE (NEGATIVE); NITRITE,URINE NEGATIVE (NEGATIVE); PH,URINE 6.5 (5-9); PROTEIN,URINE 1+ (NEGATIVE)
[2023-04-22 20:58] LABS: BACTERIA,URINE NEGATIVE /HPF; WBC,URINE RARE /HPF
[2023-04-22 22:28] VITALS: BP 133/65
== END 2023-04-22 22:38 | disposition home or self-care (01) ==
LOC: EDUNIT# 18:32 → ER 18:33
DX: S00.83XA Contusion of other part of head, initial encounter (principal); S10.93XA Contusion of unspecified part of neck, initial encounter; R55 Syncope and collapse; E83.42 Hypomagnesemia; I10 Essential (primary) hypertension; F03.90 Unspecified dementia, unspecified severity, without behavioral disturbance, psychotic disturbance, mood disturbance, and anxiety; Z79.899 Other long term (current) drug therapy; W19.XXXA Unspecified fall, initial encounter
CPT/HCPCS: 36415; 80048; 81000; 83735; 85025; 93005; 93041